=== PATIENT | female | born 1945 | race Caucasian/White ===

== ENCOUNTER 2023-10-07 15:50 | Inpatient (IN) | payer OTHER, SELFPAY ==
[2023-10-07] VITALS (10 sets, daily range): BP systolic 124–193; BP diastolic 48–101; BMI 49.1; BMI 49.0
--- NOTE | 2023-10-07 11:56 | ED.GENMED ---
History of Present Illness
<Betty Cuevas PA-C - Last Filed: 10/17/23 17:27>
General
Chief Complaint: Chest Pain
Source: patient and ambulance crew
Exam Limitations: clinical condition
Time Seen by Provider: 10/07/23 11:39
Nursing documentation reviewed up to this point in time: agreed with
Travel History
Have you had any contact with someone who has COVID-19?: No
Do you have any symptoms of coronavirus? Fever > 100 degrees, chills, cough, shortness of breath, sore throat, loss of taste or smell, muscle aches, or headache?: No
History of Present Illness
History of Present Illness:
The patient is a 77 year old female with history DM, CHF presenting via EMS for evaluation of intermittent chest pain for the past two days. Patient is unable to pinpoint any exacerbating or alleviating factors associated with this chest pain. She
does not believe that there is an exertional component to this chest pain.Per patients - the chest pain was worse today.
She denies any associated dyspnea, nausea, vomiting, diaphoresis. She denies any urinary symptoms.
She is a vague historian
Past History
<Betty Cuevas PA-C - Last Filed: 10/17/23 17:27>
Past History
ED Past Medical History: HTN and NIDDM
Phy Exam
<Betty Cuevas PA-C - Last Filed: 10/17/23 17:27>
Physical Exam
Physical Exam:
General: In no acute distress and non-toxic
Vitals: Hypertensive, otherwise VSS
HEENT: Atraumatic, normocephalic; pupils equal round and reactive to light bilaterally, protecting airway
Neck: appears supple, no JVD
CV: RRR, heart sounds normal, No evidence of cyanosis
Resp: Lungs clear bilaterally with no rales, rhonchi, or wheezing, No accessory muscle use
Abd: Obese but soft, nontender, non-distended
Extremities: Bilateral lower extremity edema, some redness and tenderness to right lower extremity
Neuro: alert and oriented x 3; no gross deficits
Psych: Agitated
Skin: Intact
Scores
<Betty Cuevas PA-C - Last Filed: 10/17/23 17:27>
Heart Score for Chest Pain Patients
STEMI patient?: No
History: Slightly or Non-Suspicious
ECG: Normal
Age: >/= 65 years
Risk Factors: >/= 3 Risk Factors or History of CAD
Troponin: >1 - <3 x Normal Limit
Heart Score for Chest Pain Patients: 5
Heart Score Risk: 20.3% MACE over next 6 weeks
Course
<Betty Cuevas PA-C - Last Filed: 10/17/23 17:27>
Orders/Labs/Results
Orders:
Orders
10/07/23 11:47
Electrocardiogram (*1) Urgent
Reason for Study: Chest Pain
EKG- Treatment ONCE
10/07/23 11:51
Basic Metabolic Panel Urgent
Complete Blood Count/With Diff Urgent
Free T4 Urgent
NT-proBNP Urgent
TSH Reflex To Free T4 Urgent
Comment: PROBNP & TSH REFLEX ADDED ON BY FLOOR 3:45PM 10-07-23
Troponin I Urgent
10/07/23 12:00
CR Chest - 2 Views Urgent
Comment:
Reason For Exam: chest pain
US Legs, Right [US Periph Venous LOWER Ext RT] Urgent
Comment:
Reason For Exam: redness, swelling
10/07/23 12:01
Case Management Consult ONCE
Case Management Consult: Discharge Planning
Requested By:: NURSING
Comment: PT. caked in stool, red buttocks, morbidily obese, wounds on RLE. Does not know hx, meds, etc..
10/07/23 13:36
Troponin I Urgent
10/07/23 13:38
Potassium Urgent
10/07/23 14:50
Electrocardiogram (*1) Urgent
Reason for Study: Chest Pain
EKG- Treatment ONCE
10/07/23 Dinner
1800 calorie (15 carb) Diabetic
At Your Request: Limited Participation
10/07/23 15:32
Admit/Transfer Patient As Directed
Co-Sign Provider:
Level of Care: Inpatient admission
Assign to:: Telemetry
Physician / Group: katy Betancourt
Transfer to: Telemetry
Diagnosis: Chest pain
Reason for Telemetry: Chest Pain syndromes
Date to Stop Telemetry: 10/09/23
Time to Stop Telemetry: 11:00
Reason for Hospitalization: Above
Expected length of stay greater than two midnights?: Yes
ELOS- Estimated Length of Stay in days: 2
I certify the patient meets the requirements for IP care: Yes
10/07/23 15:36
Code Status As Directed
Resuscitation Status: Full Code
10/07/23 15:45
Add On- LAB Routine
Tests Added?: proBNP, TSH with reflex to free T4
10/07/23 17:14
Atorvastatin [Lipitor] 80 mg PO DAILY
Dextrose 50%-Water [Dextrose 50% Syringe] 12.5 grams IV [id number] PRN
Escitalopram Oxalate [Lexapro] 10 mg PO DAILY
Glucagon [GlucaGen] 1 mg IM PRN PRN
Insulin Aspart Corrective Low [Novolog Flexpen-Low Resistance] See Protocol SC AC
Insulin Aspart/Asp Protamine [Novolog Mix 70/30 Flexpen] 50 units SC BID@0800,1700
VANCOMYCIN Pharmacy to Dose [VANCOCIN Pharmacy to Dose] 1 each Pharmacy To Prepare [Call Pharmacy To Prepare] 0 ml IV PER PROTOCOL
10/07/23 17:14
CARDIOLOGY CONSULT Routine
Consulting Provider: Vern Jung
Was physician already notified: Yes
Bedside Glucose Monitoring As Directed
Frequency: AC&HS
Comment: Change to q6h if pt on TPN, tube feeding or not eating
Wound Care As Directed
Location of Wound: Anterior Right Lower Extremity
Treatment of Wound: Wound care consult
DX Deep Vein Thrombosis Video Routine
10/07/23 17:38
Potassium Urgent
Troponin I Q8H
10/07/23 18:00
Enoxaparin Sodium [Lovenox] 40 mg SC QPM
10/07/23 20:00
Carvedilol [Coreg] 12.5 mg PO BID
10/08/23 01:07
Troponin I Q8H
10/08/23 06:26
BMP [Basic Metabolic Panel] IN AM
CBC/With Diff [Complete Blood Count/With Diff] IN AM
Glycohemoglobin (HgbA1c) IN AM
10/08/23 07:00
Levothyroxine [Synthroid] 150 mcg PO DAILY AT 0700
10/08/23 08:00
Bumetanide [Bumex] 1 mg PO DAILY
Pantoprazole [Protonix] 40 mg PO DAILY
10/09/23 11:00
DC Protocol for Telemetry ONCE
Abnormal Lab Results
10/07/23 10/07/23
11:51 13:36
MCHC 32.3 L g/dL
(33.0-37.0)
RDW 15.6 H %
(11.5-14.5)
MPV 11.3 H fL
(7.4-10.4)
BUN 26 H mg/dl
(7-17)
Creatinine 1.8 H mg/dL
(0.6-1.0)
Glucose 123 H mg/dl
(70-99)
Troponin I 0.041 H* ng/ml 0.036 H* ng/ml
TSH (Reflex) 8.66 H uIU/ml
(0.47-4.68)
10/07/23 11:51
10/07/23 13:38
Vital Signs
Initial and Last Documented VS:
Initial Vital Signs
Temp Pulse Resp BP Pulse Ox
98.5 F 70 18 143/50 96
10/07/23 11:35 10/07/23 11:35 10/07/23 11:35 10/07/23 11:35 10/07/23 11:35
Last Documented Vital Signs
Temp Pulse Resp BP Pulse Ox
98.7 F 86 18 160/70 95
10/09/23 10:59 10/09/23 10:59 10/09/23 10:59 10/09/23 12:05 10/09/23 10:59
<Sreedhar Lantigua MD - Last Filed: 10/07/23 13:23>
Orders/Labs/Results
Orders:
Orders
10/07/23 11:47
Electrocardiogram (*1) Urgent
Reason for Study: Chest Pain
EKG- Treatment ONCE
10/07/23 11:51
Basic Metabolic Panel Urgent
Complete Blood Count/With Diff Urgent
Free T4 Urgent
NT-proBNP Urgent
TSH Reflex To Free T4 Urgent
Comment: PROBNP & TSH REFLEX ADDED ON BY FLOOR 3:45PM 10-07-23
Troponin I Urgent
10/07/23 12:00
CR Chest - 2 Views Urgent
Comment:
Reason For Exam: chest pain
US Legs, Right [US Periph Venous LOWER Ext RT] Urgent
Comment:
Reason For Exam: redness, swelling
10/07/23 12:01
Case Management Consult ONCE
Case Management Consult: Discharge Planning
Requested By:: NURSING
Comment: PT. caked in stool, red buttocks, morbidily obese, wounds on RLE. Does not know hx, meds, etc..
10/07/23 13:36
Troponin I Urgent
10/07/23 13:38
Potassium Urgent
10/07/23 14:50
Electrocardiogram (*1) Urgent
Reason for Study: Chest Pain
EKG- Treatment ONCE
10/07/23 Dinner
1800 calorie (15 carb) Diabetic
At Your Request: Limited Participation
10/07/23 15:32
Admit/Transfer Patient As Directed
Co-Sign Provider:
Level of Care: Inpatient admission
Assign to:: Telemetry
Physician / Group: katy Betancourt
Transfer to: Telemetry
Diagnosis: Chest pain
Reason for Telemetry: Chest Pain syndromes
Date to Stop Telemetry: 10/09/23
Time to Stop Telemetry: 11:00
Reason for Hospitalization: Above
Expected length of stay greater than two midnights?: Yes
ELOS- Estimated Length of Stay in days: 2
I certify the patient meets the requirements for IP care: Yes
10/07/23 15:36
Code Status As Directed
Resuscitation Status: Full Code
10/07/23 15:45
Add On- LAB Routine
Tests Added?: proBNP, TSH with reflex to free T4
10/07/23 17:14
Atorvastatin [Lipitor] 80 mg PO DAILY
Dextrose 50%-Water [Dextrose 50% Syringe] 12.5 grams IV [id number] PRN
Escitalopram Oxalate [Lexapro] 10 mg PO DAILY
Glucagon [GlucaGen] 1 mg IM PRN PRN
Insulin Aspart Corrective Low [Novolog Flexpen-Low Resistance] See Protocol SC AC
Insulin Aspart/Asp Protamine [Novolog Mix 70/30 Flexpen] 50 units SC BID@0800,1700
VANCOMYCIN Pharmacy to Dose [VANCOCIN Pharmacy to Dose] 1 each Pharmacy To Prepare [Call Pharmacy To Prepare] 0 ml IV PER PROTOCOL
10/07/23 17:14
CARDIOLOGY CONSULT Routine
Consulting Provider: Vern Jung
Was physician already notified: Yes
Bedside Glucose Monitoring As Directed
Frequency: AC&HS
Comment: Change to q6h if pt on TPN, tube feeding or not eating
Wound Care As Directed
Location of Wound: Anterior Right Lower Extremity
Treatment of Wound: Wound care consult
DX Deep Vein Thrombosis Video Routine
10/07/23 17:38
Potassium Urgent
Troponin I Q8H
10/07/23 18:00
Enoxaparin Sodium [Lovenox] 40 mg SC QPM
10/07/23 20:00
Carvedilol [Coreg] 12.5 mg PO BID
10/08/23 01:07
Troponin I Q8H
10/08/23 06:26
BMP [Basic Metabolic Panel] IN AM
CBC/With Diff [Complete Blood Count/With Diff] IN AM
Glycohemoglobin (HgbA1c) IN AM
10/08/23 07:00
Levothyroxine [Synthroid] 150 mcg PO DAILY AT 0700
10/08/23 08:00
Bumetanide [Bumex] 1 mg PO DAILY
Pantoprazole [Protonix] 40 mg PO DAILY
10/09/23 11:00
DC Protocol for Telemetry ONCE
Abnormal Lab Results
10/07/23 10/07/23
11:51 13:36
MCHC 32.3 L g/dL
(33.0-37.0)
RDW 15.6 H %
(11.5-14.5)
MPV 11.3 H fL
(7.4-10.4)
BUN 26 H mg/dl
(7-17)
Creatinine 1.8 H mg/dL
(0.6-1.0)
Glucose 123 H mg/dl
(70-99)
Troponin I 0.041 H* ng/ml 0.036 H* ng/ml
TSH (Reflex) 8.66 H uIU/ml
(0.47-4.68)
10/07/23 11:51
10/07/23 13:38
Vital Signs
Initial and Last Documented VS:
Initial Vital Signs
Temp Pulse Resp BP Pulse Ox
98.5 F 70 18 143/50 96
10/07/23 11:35 10/07/23 11:35 10/07/23 11:35 10/07/23 11:35 10/07/23 11:35
Last Documented Vital Signs
Temp Pulse Resp BP Pulse Ox
98.7 F 86 18 160/70 95
10/09/23 10:59 10/09/23 10:59 10/09/23 10:59 10/09/23 12:05 10/09/23 10:59
<Betty Cuevas PA-C - Last Filed: 10/17/23 17:27>
MDM/Problems Addressed
Differential Diagnosis Includes:
ACS, PE, pneumonia, pneumothorax, costochondritis, anxiety, GERD
MDM/Problems Addressed:
Patient is a 77 year old female with hx CHF, hypertension, hyperlipidemia, diabetes presenting vis ems for evaluaiton of vague chest pain over the past two days. Patient is poor historian but does not believe symptoms or exertional or pleuritic in
nature. No associated shortness of breath or GI symptoms. She is hypertensive, but otherwise stable vital signs. Physical exam as documented above. EKS shows no STEMI. Will check basic labs, troponin, ProBNP. Given degree of swelling and erythema of
right lower leg will check US of right lower leg
CBC without any clinically significant abnormalities. CMP with elevation in Cr and BUN appears to be baseline for patient. Initial troponin elevated to 0.041. Will repeat in 3 hours and trend. US negative for findings consistent with DVT in RLE.
Repeat troponin slightly decreased from prior but remains elevated at 0.36. Discussed with cardiology - recommend admission with hospitalist service for further management. Cardiology will consult on patient. Discussed with and admitted patient to
hospitalist service.
Chronic conditions affecting care:
CHF, HTN, HLD, GERD, DM, Obesity
Acute Exacerbation and/or Progression of Chronic Illness:
Acutely hypertenisve
<Betty Cuevas PA-C - Last Filed: 10/17/23 17:27>
*Radiology
Radiology exam reviewed: preliminary read by ED provider and radiology read reviewed
*Pulse Oximetry
Patient hypoxic: no
*EKG
Interpreted by ED Provider?: Yes
EKG Intrepretation Date: 10/07/23
Interpretation: abnormal
Comparison EKG: changes noted
Heart Rate: 67
Rate: normal
Rhythm: sinus
[place]: left axis deviation
Interval: normal interval
QRS Pattern: normal QRS
Ischemia: non-specific ST changes
*Critical Care Note
Total Time (30-74mins, 75-104mins- exclusive of procedures): Not Applicable
Data Reviewed
Source: patient and spouse
<eBtty Cuevas PA-C - Last Filed: 10/17/23 17:27>
Patient Management
Discussion with other providers: Hospitalist and Mapping Specialist (cardiology)
ED Attending Note
<Betty Cuevas PA-C - Last Filed: 10/17/23 17:27>
-
Portions of this chart may have been created with voice recognition software.� Occasional wrong word or��sound alike� substitutions may have occurred due to the inherent limitations of voice recognition software.
<Sreedhar Lantigua MD - Last Filed: 10/07/23 13:23>
ED Attending Note
Patient seen and examined by attending physician: Yes
ED Attending Note:
HPI: 77-year-old female with history of diabetes, obesity, hypothyroidism, CHF presents to the emergency room for evaluation of chest pain. Patient is a very vague historian. She says she has been having chest pain but cannot really tell me about
triggers or timing of her symptoms although she seems to be rather confident that her symptoms are not exertional. Her is at bedside says that she has been complaining of chest pain off and on for the past 2 days and was complaining of more
intense symptoms today. She denies any dyspnea. Denies any GI symptoms.
ROS: Positive for chest pain; negative for shortness of breath, nausea, vomiting, abdominal pain
Physical exam:
General: Awake, alert, oriented x3; no acute distress, calm and cooperative for me although she was apparently threatening and cursing at staff on arrival
Head: Normocephalic, atraumatic
Eyes: Conjunctiva normal, sclera anicteric
Throat: Airway intact, handling secretions
Neck: Trachea midline, supple without meningismus
Lungs: Clear to auscultation bilaterally, no wheezing, rales, rhonchi
Heart: Regular rate and rhythm, no murmurs, gallops, or rubs
Abd: Obese but soft, non distended, nontender
Neuro: No gross deficit
Skin: no rash
Extremities: Bilateral lower extremity; she has some erythema to the right lower leg and tenderness in this area
Differential diagnosis: ACS, PE, pneumonia, pneumothorax, costochondritis, anxiety, GERD
Medical decision makin-year-old female presents for evaluation of intermittent vague chest pain over the past 2 days. Vital signs normal. Exam as above. EKG shows no STEMI. Labs sent off including a CBC and a CMP�significant for creatinine
of 1.8 which is baseline. Her troponin is elevated at 0.041�will need to trend out. Given her vague intermittent symptoms with positive troponin PA discussed case with cardiology who recommended admission to the hospital service will trend
troponins and consult on patient. PA discussed with hospitalist for admission.
Chronic conditions affecting care: Obesity, diabetes, CHF
Acute exacerbation or progression of chronic illness: N/A
History source: Patient,
Data reviewed: N/A
Medications/testing considered: N/A
Social determinants of health: N/A
Discussion with other providers: Cardiology, hospitalist
Discharge Plan
Departure
Patient Disposition: Admit
Date of Disposition: 10/07/23
Time of Disposition: 13:16
Presentation/result/management discussed w/ accepting MD/DO: Hospitalist
Discharge Problem:
Chest pain, Elevated troponin
Interventions
Interventions:
*Risk Screen - Suicide Last Done: 10/07/23 17:56
*General Assessment Last Done: 10/07/23 11:35
*Neglect/Abuse Screening Last Done: 10/07/23 11:35
ED- Fall Risk Assessment Last Done: 10/07/23 11:35
*ED COVID-19 Vaccine History Last Done: 10/07/23 17:56
*Nursing Disposition Last Done: 10/07/23 16:37
ED- Cardiac Assessment Last Done: 10/07/23 11:35
Discharge Date and Time
Discharge Date/Time: 10/07/23 17:09
[2023-10-07 12:01] LABS: % Basophils 0.4 % (0-2); % Eosinophils 3.5 % (0-6); % Immature Granulocytes 0.4 % (0-0.5); % Lymphocytes 21.2 % (20.5-51.1); % Monocytes 8.1 % (1.7-9.3); % Neutrophils 66.4 % (42.2-75.2); Absolute Eosinophils 0.3 10^3/uL (0-0.7); Absolute Lymphocytes 1.6 10^3/uL (1.2-3.4); Absolute Monocytes 0.6 10^3/uL (0.1-0.6); Hematocrit 41.2 % (37.0-47.0); Hemoglobin 13.3 g/dL (12.0-16.0); Mean Corp Hgb Conc. 32.3 g/dL (33.0-37.0); Mean Corpuscular Hgb 28.1 pg (27.0-31.0); Mean Corpuscular Volume 86.9 fL (81.0-99.0); Mean Platelet Volume 11.3 fL (7.4-10.4); Nucleated Red Blood Cells % 0 %; Platelet Count 199 10^3/uL (130-400); Red Blood Cell Count 4.74 10^6/uL (4.20-5.40); Red Cell Dist. Width 15.6 % (11.5-14.5); White Blood Cell Count 7.5 10^3/uL (4.8-10.8)
[2023-10-07 12:26] LABS: Blood Urea Nitrogen 26 mg/dl (7-17); Calcium 8.7 mg/dl (8.4-10.2); Carbon Dioxide 27 mmol/L (22-30); Chloride 104 mmol/L (98-107); Estimated Creatinine Clearance 39 ml/min; Glucose 123 mg/dl (70-99); Sodium 137 mmol/L (135-145); eGFR 29.02
[2023-10-07 12:40] LABS: Troponin I 0.041 ng/ml
[2023-10-07 13:53] LABS: Potassium 4.1 mmol/L (3.5-5.1)
[2023-10-07 14:10] LABS: Troponin I 0.036 ng/ml
--- NOTE | 2023-10-07 14:27 | CM ---
Patient seen at bedside with patient present. Patient stated that they lived in a home with 3 stairs to go to lower level. Patient stated that patient had PCP of Dr. Hunter but now had Dr. Silva. Patient uses the [facility] [address] in [place] and has had [facility] in the past but is not current with them. Patient has a concentrator that she uses at night per and that they own. Patient has a walker, wheelchair and Lift chair in addition to the home
O2. Patient indicated that patient is stubborn about care at times but was cleaned up prior to transfer to ambulance this am. Patient confirmed that she is stubborn and does not like to do things other than how she wants. Consult regarding
care and cleanliness, both patient and brushed off any concerns. Patient may benefit from PT/OT assessment and home VN supports. Patient admitted that she can walk but at times refuses to do so. Patient indicated that she did not think she
would ever agree to go to a SNF, agreed. CM will continue to follow for discharge planning needs.
Plan; home with VN; [facility] vs SNF
--- NOTE | 2023-10-07 15:43 | CON.CAR ---
Addendum entered and electronically signed by Vern Jung DO 10/07/23 18:22:
I saw and examined the patient.
The Decorating Consultant's note was reviewed and I agree with the note.
Comment:
Plan:
presents for evaluation of intermittent chest pain over the last several days.� Different than prior presentation resulting in stents several years ago.
Continue medical therapy of likely non-PA troponin.
Check echo for evaluation of LV function in the setting of lower extremity edema/lymphedema/chronic renal insufficiency
Consider outpatient ischemic evaluation through her primary rest room attendant Dr. Richard
Check proBNP. Continue oral Bumex. Monitor creatinine.
EKG without acute changes.
Obtain records from outpatient rest room attendant
Continue wound care and treatment of lower extremity cellulitis.
Discussed with son at bedside.
Original Note:
Consultation
Consultation Request
Date/Time Consultation Performed: 10/07/23
Requesting Provider: Betty Cuevas
Performing Provider: Joanne Owen PA-C for Dr. Jung
Reason for Consultation: CP, elevated trop
Medical History
-
Chief Complaint: CP
History of Present Illness:
Patient is a 77 yo F with PMH of CAD s/p stents at OSH, CHF, HTN, HLD, DM, hypothyroidism, morbid obesity, CKD who presented to with complaints of chest pressure/discomfort. Reports centrally located without radiation. Reports some mild nausea
with a bitter taste in her mouth. States she was sitting when it started, no correlation with exertion or eating. Has been intermittent since initially started 2 days ago. In the setting of her prior stents, she had complained of shortness of
breath. She has chronic knee disease with creatinine previously as high as the twos, more recently decreased into the mid ones per her son. She had been switched from Lasix as an outpatient to bumex due to her kidney function. She reports she
also recently has had open wounds and oozing of her right lower extremity for several weeks duration. Cardiology consulted as troponin elevated at 0.03, 0.04. Without chest pain presently. EKG sinus rhythm with nonspecific ST and T wave
abnormality.
PMH:
CAD status post prior stents at outside hospital
Chronic venous insufficiency/lymphedema
CKD
hypertension
Hyperlipidemia
diabetes
hypothyroidism
Morbid obesity
Past Medical History
Past Medical History: Other (in HPI)
Social History
Employment: Retired
Family History
Family History: CAD (in father in 60s)
Allergies / Home Medications
Allergy/AdvReac Type Severity Reaction Status Date / Time
No Known Allergies Allergy Verified 02/04/23 01:31
Medication Instructions Recorded Confirmed Type
atorvastatin 80 mg tablet 80 mg PO DAILY High Cholesterol 02/04/23 10/07/23 History
escitalopram oxalate 10 mg tablet 10 mg PO DAILY Mental 02/04/23 10/07/23 History
Health/Anxiety
levothyroxine 150 mcg tablet 150 mcg PO DAILY Thyroid 02/04/23 10/07/23 History
omeprazole 20 mg tablet,delayed 20 mg PO DAILY Gastrointestinal 02/04/23 10/07/23 History
release Issue
carvedilol 12.5 mg tablet 12.5 mg PO BID 02/05/23 10/07/23 History
bumetanide 1 mg tablet 1 mg PO DAILY 10/07/23 10/07/23 History
clindamycin HCl 300 mg capsule 300 mg PO Q6H 10/07/23 10/07/23 History
insulin aspar prt-insulin aspart 1 sliding scale dose SC AC 10/07/23 10/07/23 History
100 unit/mL (70-30) subcutaneous
soln (Novolog Mix 70-30 U-100
Insuln)
Review of Systems
-
History Source: Patient and Family
All other systems: Negative unless noted
Physical Exam
Vital Signs
Temp Pulse Resp BP Pulse Ox
98.5 F 67 17 134/65 91
10/07/23 11:35 10/07/23 14:30 02/22/24 12:49 10/07/23 14:00 10/07/23 14:30
Lab Results
10/07/23 11:51
10/07/23 13:38
Troponin I 0.036 ng/ml H* 10/07/23 13:36
Physical Exam
General: No Apparent Distress, Comfortable and Other (obese)
HEENT: Normocephalic, Anicteric and Moist Mucous Membranes
Respiratory: Clear and Non Labored Respirations
Cardiac: S1/S2 and Regular Rhythm
GI: Soft, Non Tender, Non Distended and Normal Bowel Sounds
Musculoskeletal: No Clubbing, No Cyanosis and Edema (3+ RLE edema with blistering, open wounds with surrounding erythema, 1+ edema of LLE)
Skin: Warm and Dry
Neuro: AO x 3
Impression / Plan
-
Primary Defensive Line Coach: previously seen by Dr. Grande
Assessment:
Presentation with CP
RLE edema/wounds
Elevated troponin, suspected nonMI trop elevation
CAD status post prior stents at outside hospital
Chronic HFpEF
Chronic venous insufficiency/lymphedema
CKD
hypertension
Hyperlipidemia
diabetes
hypothyroidism
Morbid obesity
Plan:
-Patient presents for evaluation of intermittent chest pain over the last several days. Different than prior presentation resulting in stents several years ago.
-Troponins very mildly abnormal 0.03, 0.04. Patient also with chronic kidney disease
-Patient without chest pain currently.
-EKG sinus rhythm without acute ischemic changes noted, stable compared to prior EKGs
-Check echo
-Obtain records from outpatient rest room attendant
-Check proBNP in setting of significant lower extremity edema. She does take Bumex as an outpatient, continue p.o. for now, however may require IV diuresis
-May consider for ischemic eval, inpatient versus outpatient pending on results of additional blood work and testing. She would be at elevated risk for ATN with cath due to her chronic kidney disease. Differential should also include PE, however
with kidney function would avoid CT. right lower extremity ultrasound negative for DVT in ER
-Continue local wound care to right lower extremity. Further treatment per primary service
-Discussed with patient and son at bedside. Discussed with hospitalist
Data Reviewed
-
EKG: Tracing Personally Visualized and interpreted
Ultrasound: Report Reviewed by me
Medical Tests (Nuc Med, Echo etc): Report Reviewed by me
Labs: Labs Reviewed by me
Old Records: Requested and Reviewed
--- NOTE | 2023-10-07 15:48 | HPS.HSE ---
Family Physician
-
Family Physician: Fuentes Ann
Chief Complaint
-
Chest pain
History of Present Illness
Patient is a 77-year-old female with past medical history of poorly controlled diabetes mellitus, hypothyroidism, cellulitis s/p sepsis with lactic acidosis, class III obesity, who presented to ED with C/o of intermittent chest pain that started
2 days ago. She describes the pain as a pressure in the middle of the chest, rated 4/10 at its worst and does not radiate. The pain does not change with movement, stays for about 10 to 12 minutes and goes away on its own without treatment. Patient
stated that she gets the chest pain while sitting and doing nothing and the pain does not change when she moves. She has not examined the makes it better or worse. Patient does not have pain at the moment.
Patient also reports a weeping wound on the anterior aspect of her right leg which has been there since July 2023. She reports some sharp pain in the area of the wound. Patient stated that she was expecting a call from wound care but has not
gotten any wound care treatment. She denies shortness of breath, fever, chills, headaches, and any urinary symptoms.
Medical History
Past Medical History
Past Medical History: Reports HTN, Hypothyroidism and IDDM; Denies CAD or DE
Additional Past Medical History:
Depression, overactive bladder, ASCVD(two-vessel), CKD
Past Surgical History: Reports Other
Additional Past Surgical History:
PTCA with Stent x 2 2 years ago
Tonsillectomy and adenoidectomy
Social History
Tobacco: Former Smoker (Quit about 12 years ago)
Alcohol: Occasional
Drug: None
Personal:
Living: With Family
Family History
Family History: Diabetes and Hypertension
Allergies / Home Medications
Allergies reflects when Allergies were last updated in [facility].
Allergies
Allergy/AdvReac Type Severity Reaction Status Date / Time
No Known Allergies Allergy Verified 02/04/23 01:31
Home Medications
Medication Instructions Recorded
atorvastatin 80 mg tablet 80 mg PO DAILY High Cholesterol 02/04/23
escitalopram oxalate 10 mg tablet 10 mg PO DAILY Mental 02/04/23
Health/Anxiety
levothyroxine 150 mcg tablet 150 mcg PO DAILY Thyroid 02/04/23
omeprazole 20 mg tablet,delayed 20 mg PO DAILY Gastrointestinal 02/04/23
release Issue
carvedilol 12.5 mg tablet 12.5 mg PO BID 02/05/23
bumetanide 1 mg tablet 1 mg PO DAILY 10/07/23
clindamycin HCl 300 mg capsule 300 mg PO Q6H 10/07/23
insulin aspar prt-insulin aspart 1 sliding scale dose SC 10/07/23
100 unit/mL (70-30) subcutaneous
soln (Novolog Mix 70-30 U-100
Insuln)
Home Medications with original date entered in [facility]
Allergy/Medication List:
Home Medications
Medication Instructions Recorded
atorvastatin 80 mg tablet 80 mg PO DAILY High Cholesterol 02/04/23
escitalopram oxalate 10 mg tablet 10 mg PO DAILY Mental 02/04/23
Health/Anxiety
levothyroxine 150 mcg tablet 150 mcg PO DAILY Thyroid 02/04/23
omeprazole 20 mg tablet,delayed 20 mg PO DAILY Gastrointestinal 02/04/23
release Issue
carvedilol 12.5 mg tablet 12.5 mg PO BID 02/05/23
bumetanide 1 mg tablet 1 mg PO DAILY 10/07/23
clindamycin HCl 300 mg capsule 300 mg PO Q6H 10/07/23
insulin aspar prt-insulin aspart 1 sliding scale dose SC 10/07/23
100 unit/mL (70-30) subcutaneous
soln (Novolog Mix 70-30 U-100
Insuln)
Review of Systems
-
History Source: Patient and Family
A 12 point ROS was completed and negative except as noted: Yes
Constitutional: Denies Fever or Chills
EENT: Reports No Symptoms
Respiratory: Reports No Symptoms; Denies Cough or Trouble Breathing
Cardiac: Reports Chest Pain (Intermittent)
Abdomen/GI: Reports No Symptoms
: Reports No Symptoms
Musculoskeletal: Reports No Symptoms
Skin: Reports Other (Possible cellulitis and anterior right lower extremity)
Neurological: Reports No Symptoms
Endocrine: Reports No Symptoms
Hematologic/Lymphatic: Reports No Symptoms
Psych: Reports Calm
Physical Exam
Vital Signs
Vital Signs
Temp Pulse Resp BP Pulse Ox
98.5 F 67 17 134/65 91
10/07/23 11:35 10/07/23 14:30 10/07/23 12:49 10/07/23 14:00 10/07/23 14:30
Home Medications
Medication Instructions Recorded
atorvastatin 80 mg tablet 80 mg PO DAILY High Cholesterol 02/04/23
escitalopram oxalate 10 mg tablet 10 mg PO DAILY Mental 02/04/23
Health/Anxiety
levothyroxine 150 mcg tablet 150 mcg PO DAILY Thyroid 02/04/23
omeprazole 20 mg tablet,delayed 20 mg PO DAILY Gastrointestinal 02/04/23
release Issue
carvedilol 12.5 mg tablet 12.5 mg PO BID 02/05/23
bumetanide 1 mg tablet 1 mg PO DAILY 10/07/23
clindamycin HCl 300 mg capsule 300 mg PO Q6H 10/07/23
insulin aspar prt-insulin aspart 1 sliding scale dose SC AC 10/07/23
100 unit/mL (70-30) subcutaneous
soln (Novolog Mix 70-30 U-100
Insuln)
Allergies
Allergy/AdvReac Type Severity Reaction Status Date / Time
No Known Allergies Allergy Verified 02/04/23 01:31
Physical Exam
General: No Apparent Distress, Comfortable and Conversant; No Respiratory Distress
HEENT: NormoCephalic, Moist mucous membranes and Atraumatic
Respiratory: Clear and Non Labored Respirations
Cardiac: S1/S2 and Regular Rhythm; No Murmur, Rub or Gallop
GI: Soft and Non Tender
Rectal: Deferred by Provider
Genito-urinary: Deferred by me
Musculoskeletal: No Clubbing, No Cyanosis, Edema, Left Lower Extremity and Edema, Right Lower Extremity
Skin: Warm, Ulcers (With possible cellulitis in the right lower extremity) and Other (Lymphedema)
Neuro: Awake, Alert, Oriented and AO x 3
Psych: Calm and Intact Judgment/Insight
Laboratory Results
-
10/07/23 11:51
10/07/23 13:38
Laboratory Results
Total Bilirubin Cancelled 10/07/23 11:51
AST Cancelled 10/07/23 11:51
ALT Cancelled 10/07/23 11:51
Alkaline Phosphatase Cancelled 10/07/23 11:51
Troponin I 0.036 ng/ml H* 10/07/23 13:36
Data Reviewed
-
Diagnostic Radiology: Image Personally Visualized and interpreted, Report Reviewed by me and Discussed with Physician
Ultrasound: Image Personally Visualized and interpreted, Report Reviewed by me and Discussed with Physician
Lab Data: Labs Reviewed by me and Discussed with Physician
Impression/Plan
-
IMPRESSION:
Presentation with chest pain
Right lower extremity cellulitis in the setting of lymphedema.
Conditions Prior to Admission
Most recent hospitalization with sepsis and streptococcal bacteremia.
CAD with prior stenting in outside hospital.
Chronic CHF preserved EF.
CKD stage IIIa�B.
Essential hypertension
Dyslipidemia
IDDM
Hypothyroidism
Morbid obesity BMI 49
Chronic lymphedema/venous insufficiency
PLAN:
Presentation with atypical chest pain
-Described as mid chest pressure at rest, worsening with position or exertion.
-ECG with normal sinus rhythm and nonspecific ST abnormalities.
-Chest x-ray with no focal abnormalities.
-Right lower extremity ultrasound with no DVT.
-Mild elevation of troponin I and non-DE range.
-Hemodynamically stable, in no acute respiratory distress.
-Differential diagnosis includes possible musculoskeletal in origin given her BMI/morbid obesity, less likely acute coronary syndrome, less likely tension pneumothorax, less likely esophageal perforation, less likely acute PE given unremarkable
chest x-ray and stable respiratory status.
-Would like to rule out PE but patient not a candidate of CT angiogram given her CKD.
-Serial troponin.
-Echocardiogram pending.
-Continue statin.
-Continue Coreg.
-Cardiology consult.
-Patient follows with Dr. Richard outpatient; obtain prior records from electroplating sales representative
Right lower extremity cellulitis in the setting of lymphedema
-Recent admission with sepsis and streptococcal bacteremia of unknown source.
-Right lower extremity Doppler negative for DVT.
-Normal white count, patient afebrile.
-Start IV vancomycin.
-Hold clindamycin.
-Wound consult.
IDDM
Prior history of noncompliance and hemoglobin A1c of 12.
Update hemoglobin A1c.
Continue insulin 70/30 at 50 twice daily
Continue glyburide
Basal bolus protocol
Come hide controlled diet
Heart failure with preserved EF.
-Volume status possibly compensated given stable respiratory status
-Continue preadmission regimen including Coreg, Bumex
Hypothyroidism
Continue levothyroxine
DVT prophylaxis
-Lovenox.
--- NOTE | 2023-10-07 16:12 | W.PN.UPDATE ---
Update Note
Progress Note Update
Patient seen and examined
Discussed with cardiology
Discussed with resident
Impression:
Presentation with chest pain likely atypical
Non-OK troponin elevation
Right lower extremity cellulitis in the settings of lymphedema.
Conditions prior to admission:
Most recent hospitalization with sepsis and streptococcal bacteremia.
CAD with prior stenting in outside hospital.
Chronic CHF preserved EF.
CKD stage IIIa�B.
Essential hypertension
Dyslipidemia
IDDM
Hypothyroidism
Morbid obesity BMI 49
Chronic lymphedema/venous insufficiency
Plan:
Chest pain
Reports intermittent mid chest pressure-like sensation at rest, not positional, not worsening with exertion.
Hemodynamically stable presentation
Stable respiratory status.
ECG normal sinus rhythm with no ischemia.
Troponin in non-OK range mild elevation likely with CKD and abnormal GFR.
Differential diagnosis less likely acute coronary syndrome, less likely thromboembolic disease given stable respiratory status, possibly musculoskeletal.
Echocardiogram.
Serial troponin.
Cardiology consultation
Start aspirin.
Continue Coreg
Continue statin
CHF preserved EF.
Volume status possibly compensated given stable respiratory status
Continue preadmission regimen including Coreg, Bumex
Right lower extremity cellulitis
Not septic.
Noted recent admission with sepsis and streptococcal bacteremia at bedtime unclear source, possibly above.
Right lower extremity Doppler negative for DVT
WBC within normal limits
On clindamycin prior to admission
Hold clindamycin
Start IV vancomycin
Wound consult.
IDDM
Prior history of noncompliance and hemoglobin A1c of 12.
Update hemoglobin A1c.
Continue insulin 70/30 at 50 twice daily
Continue glyburide
Basal bolus protocol
Come hide controlled diet
Hypothyroidism
Continue levothyroxine
[2023-10-07 17:25] LABS: NT-proBNP 2690 pg/ml
[2023-10-07 17:42] LABS: Glucose - Point of Care 119 mg/dl (70-99)
--- NOTE | 2023-10-07 17:42 | PHA.VAN.IN ---
Assessment
- Assessment
Renal Function: Appears elevated from baseline (02/03/23 BASELINE SCR: 1.4)
Concomitant Antimicrobials: NONE
- Previous Dosing Experience
Previous Regimen: NONE
Plan
- Plan
Initial / Loading Dose: 1500MG
Maintenance Regimen: DOSING BY RANDOM LEVELS
Monitoring: RANDOM VANCOMYCIN LEVEL 10/08/23 AM
Pharmacokinetics Vancomycin I
- -
Patient Age: 77
Patient Sex: Female
Vancomycin Day #: 1
Indication: Skin And Soft Tissue (LEG CELLULITIS)
Requesting Provider: BOONE
Height / Weight:
Height 5 ft 6 in
Actual Weight 137.552 kg
Pertinent Past Medical History: RECENT HOSP SEPSIS/BACTEREMIA; OUTPT CLINDAMYCIN
- Vital Signs / Lab Results
Temp Pulse Resp BP Pulse Ox
98.5 F 76 17 161/52 95
10/07/23 11:35 10/07/23 17:00 10/07/23 12:49 10/07/23 17:00 10/07/23 17:00
Lab Results - Hematology
10/07/23
11:51
WBC 7.5
Lab Results - Chemistry
10/07/23
11:51
BUN 26 H
Creatinine 1.8 H
Estimated Creat Clear 39
Albumin Cancelled
[2023-10-07 17:48] LABS: TSH Reflex To Free T4 8.66 uIU/ml (0.47-4.68)
[2023-10-07 18:09] LABS: Troponin I 0.038 ng/ml
--- NOTE | 2023-10-07 18:30 | PTCARENOTE ---
Received pt from ER, Pt awake, alert and oriented x3. Anxious at times. Pt has no c/o pain at rest. Pain in right leg with ambulation. No further c/o chest pain. Pt has multiple open blisters vs venous ulcers with scabbed areas, Per having a
lot of drainage at home, currently not draining. Significant swelling in both legs said they use compression when wounds are not present. Area cleansed thoroughly with saline and dressing applied wound care consult in place. Pt VSS 92% on
RA. Pt oriented to room, call lipscomb within reach, Plan of care ongoing.
[2023-10-07 18:35] LABS: Potassium 3.9 mmol/L (3.5-5.1)
[2023-10-07 18:38] LABS: Glucose - Point of Care 147 mg/dl (70-99)
[2023-10-07] MEDS: NOVOLOG FLEXPEN-LOW RESISTANCE SC (18:39)
[2023-10-07 18:41] LABS: Free T4 1.86 ng/dl (0.78-2.19)
[2023-10-07] MEDS: NOVOLOG MIX 70/30 FLEXPEN 50 UNITS SC (18:41)
[2023-10-07] MEDS: VANCOCIN 300 ML IV (18:41)
[2023-10-07] MEDS: VANCOCIN 300 MG IV (18:41)
[2023-10-07] MEDS: LOVENOX 40 MG SC (18:43)
[2023-10-07] MEDS: LIPITOR 80 MG PO (18:43)
--- NOTE | 2023-10-07 18:45 | PTCARENOTE ---
Pts blood sugar 147 prior to dinner Pt due for 50 units of 70/30 Insulin. Pts said that at home he would give full dose of Insulin for current blood sugar. Pt ate 90% of dinner. Pt also given juice and had 2 pieces of candy from .
Encouraged to have snack prior to bed and alert staff if she is feeling any signs of hypoglycemia. Pt verbalized understanding, call lipscomb within reach, plan of care ongoing.
[2023-10-07] MEDS: ASPIRIN ENTERIC COATED 325 MG PO (19:32)
[2023-10-07] MEDS: COREG 12.5 MG PO (20:48)
[2023-10-07 21:16] LABS: Glucose - Point of Care 159 mg/dl (70-99)
[2023-10-07] MEDS: DESENEX/MITRAZOL/ZEASORB 1 APPLIC TOPICAL (22:53)
[2023-10-08] VITALS (7 sets, daily range): BP systolic 112–164; BP diastolic 51–72; BMI 49.2
[2023-10-08 01:55] LABS: Troponin I 0.041 ng/ml
--- NOTE | 2023-10-08 05:40 | PTCARENOTE ---
Patient denies CP this shift. HR irregular. SR with PVC on tele. Breath sounds are cleat but diminished bibasilar. Sat 96% on room air. HS fingerstick glucose 159. Patient sleeping comfortably at this time.
[2023-10-08] MEDS: SYNTHROID 150 MCG PO (06:14)
[2023-10-08 06:36] LABS: % Basophils 0.4 % (0-2); % Eosinophils 4.9 % (0-6); % Immature Granulocytes 0.3 % (0-0.5); % Lymphocytes 20.3 % (20.5-51.1); % Monocytes 8.6 % (1.7-9.3); % Neutrophils 65.5 % (42.2-75.2); Absolute Eosinophils 0.3 10^3/uL (0-0.7); Absolute Lymphocytes 1.4 10^3/uL (1.2-3.4); Absolute Monocytes 0.6 10^3/uL (0.1-0.6); Absolute Neutrophils 4.5 10^3/uL (1.4-6.5); Hematocrit 36.8 % (37.0-47.0); Hemoglobin 11.9 g/dL (12.0-16.0); Mean Corp Hgb Conc. 32.3 g/dL (33.0-37.0); Mean Corpuscular Hgb 28.1 pg (27.0-31.0); Mean Corpuscular Volume 86.8 fL (81.0-99.0); Nucleated Red Blood Cells % 0 %; Platelet Count 180 10^3/uL (130-400); Red Blood Cell Count 4.24 10^6/uL (4.20-5.40); Red Cell Dist. Width 15.7 % (11.5-14.5); White Blood Cell Count 6.9 10^3/uL (4.8-10.8)
[2023-10-08 06:57] LABS: Vancomycin Random 12.8 ug/ml
[2023-10-08 07:15] LABS: Blood Urea Nitrogen 28 mg/dl (7-17); Calcium 8.4 mg/dl (8.4-10.2); Carbon Dioxide 30 mmol/L (22-30); Chloride 102 mmol/L (98-107); Estimated Creatinine Clearance 39 ml/min; Glucose 62 mg/dl (70-99); Potassium 3.8 mmol/L (3.5-5.1); Sodium 138 mmol/L (135-145); eGFR 29.02
--- NOTE | 2023-10-08 08:18 | PHA.VAN.FU ---
Vancomycin Assessment / Plan
- Assessment
Renal Function: Stable
WBC's are: WNL
In the past 24 hrs, patient has been: Afebrile
- Assessment - Therapeutic Drug Monitoring
Random Level: 12.8 - drawn ~11.5H after previous dose of 1500mg
- Dosing Plan
Dosing by Level: Re-dose today (Vanc 1250mg)
- Monitoring Plan
Random Level: 10/09 06
- Follow Up
Pharmacy will continue to follow.
Vancomycin Follow UP
- -
Patient Age: 77
Patient Sex: Female
Vancomycin Day #: 2
Indication: Skin And Soft Tissue
Requesting Provider: Dr. Ashton (resident)
Pertinent Antimicrobial Allergies:
NKDA
Height / Weight:
Height 5 ft 6 in
Actual Weight 138.147 kg
Pertinent Past Medical History: BMI ~49, CKD, DM
- Vital Signs / Lab Results
Temp Pulse Resp BP Pulse Ox
98.1 F 74 16 154/68 95
10/08/23 07:30 10/08/23 07:30 10/08/23 07:30 10/08/23 07:30 10/08/23 07:30
Lab Results - Hematology
10/07/23 10/08/23
11:51 06:26
WBC 7.5 6.9
Lab Results - Chemistry
10/07/23 10/08/23
11:51 06:26
BUN 26 H 28 H
Creatinine 1.8 H 1.8 H
Estimated Creat Clear 39 39
Albumin Cancelled
Therapeutic Drug Monitoring
Random Vancomycin 12.8 ug/ml 10/08/23 06:26
[2023-10-08 08:31] LABS: Glucose - Point of Care 67 mg/dl (70-99)
[2023-10-08 09:17] LABS: Glucose - Point of Care 80 mg/dl (70-99)
[2023-10-08] MEDS: ASPIRIN ENTERIC COATED 325 MG PO (09:17)
[2023-10-08] MEDS: LEXAPRO 10 MG PO (09:17)
[2023-10-08] MEDS: BUMEX 1 MG PO (09:17)
[2023-10-08] MEDS: NOVOLOG FLEXPEN-LOW RESISTANCE SC (09:17)
[2023-10-08] MEDS: COREG 12.5 MG PO ×2 (09:18→20:09)
[2023-10-08] MEDS: DESENEX/MITRAZOL/ZEASORB 1 APPLIC TOPICAL ×2 (09:18→20:10)
[2023-10-08] MEDS: LIPITOR 80 MG PO (09:18)
[2023-10-08] MEDS: PROTONIX 40 MG PO (09:18)
[2023-10-08 09:27] LABS: Glycohemoglobin (HgbA1c) 7.8 % (4.0-5.6)
--- NOTE | 2023-10-08 10:54 | W.PN.CARDCBS ---
Addendum entered and electronically signed by Tyrone Guzman MD 10/08/23 17:02:
She feels better. Still with pain in the right lower extremity
allergies: None
Outpatient medications atorvastatin 80 mg a day, Bumex 1 mg daily, carvedilol 12.5 mg twice daily, clindamycin 300 mg every 6 hours, Lexapro, levothyroxine, 150 mcg daily, omeprazole 20 mg a day
Current medications: Aspirin 325 mg a day, Bumex 1 mg daily, atorvastatin 80 mg a day, carvedilol 12.5 mg twice daily, Lovenox,
PMH/SH/P SH/FH: Reviewed
ROS: Negative except as above
202 70, 112/60, pulse 75, respirate 16, afebrile
Hemoglobin 11.9, BUN/creatinine 28 and 1.8, troponin 0.041, proBNP is 2690
Assessment:
Presentation with CP
RLE edema/wounds
Elevated troponin, peak 0.041, suspected non-ischemic myocardial injury
acute on chronic heart failure reduced EF, proBNP 2690
CAD
status post LAD/D1 w/ bifurcation ANNETTE 09/22/2021 ([facility])Chronic HF mildly reduced EF, 45%
Chronic venous insufficiency/lymphedema
CKD
hypertension
Hyperlipidemia
diabetes
hypothyroidism
Morbid obesity
stroke 04/2017
History of GIB w/ transfusion 09/2021
Echo 10/08/2023: pending
Echo 09/05/2021�EF 45 to 50% with mid and apical anterior septal and apical hypokinesis.� Stage II diastolic dysfunction, mild MR, mild TR with PAP 60 mmHg
Lexiscan nuclear stress test 09/05/2021:�Positive for anteroapical defect suggestive of ischemia
Plan:
Chest pain/Detectable troponin: Consider outpatient ischemic evaluation, however given comorbidities conservative management may be preferable
Heart failure with mildly reduced EF: Await echocardiogram. Suspect she is still significantly volume overloaded, will transition to IV Bumex 1mg bid. She received IV Lasix this afternoon.
Leg wound: Per hospitalist
Morbid obesity: Noted
CKD: Monitor renal function
We will continue to follow.
Original Note:
Today's Communication / Plan
-
Echo today
Give 40 mg IV Lasix x 1 this afternoon and assess response
Replete K+
Impression / Plan
-
Primary [facility] [employer]: previously seen by Dr. Grande
Assessment:
Presentation with CP
RLE edema/wounds
Elevated troponin, peak 0.041, suspected non-ischemic myocardial injury
acute on chronic heart failure reduced EF, proBNP 2690
CAD
status post LAD/D1 w/ bifurcation ANNETTE 09/22/2021 ([facility])
Chronic HF mildly reduced EF, 45%
Chronic venous insufficiency/lymphedema
CKD
hypertension
Hyperlipidemia
diabetes
hypothyroidism
Morbid obesity
stroke 04/2017
History of GIB w/ transfusion 09/2021
Echo 10/08/2023: pending
Echo 09/05/2021 EF 45 to 50% with mid and apical anterior septal and apical hypokinesis. Stage II diastolic dysfunction, mild MR, mild TR with PAP 60 mmHg
Lexiscan nuclear stress test 09/05/2021: Positive for anteroapical defect suggestive of ischemia
Plan:
-Patient presented 10/07/2023 for evaluation of intermittent chest pain over the last several days. Different than prior presentation resulting in stents several years ago.
-Elevated troponin, peak 0.041, suspected non-ischemic myocardial injury due to heart failure and chronic kidney disease
-Patient without chest pain for last EKG sinus rhythm without acute ischemic changes noted, stable compared to prior EKGs
-Echo ordered and pending
-Acute on chronic heart failure, proBNP 2690 with significant lower extremity edema. Will give dose of IV Lasix 40 mg today in addition to oral bumex and assess response
-Replete K+
-Continue Coreg, CKD prevents initiation of KIA-i/ARB, Aldactone. Also has cellulitis and recent admission with sepsis and streptococcal bacteremia unclear source. Would hold on SGLT2 inhibitor at this time.
-Consider outpatient ischemic evaluation through her primary supervisor properties Dr. Richard. She would be at elevated risk for ATN with cath due to her chronic kidney disease. Differential should also include PE, however with kidney function would avoid
CT. right lower extremity ultrasound negative for DVT in ER
-Continue local wound care to right lower extremity. Further treatment per primary service
-Discussed with patient and son at bedside.
-Reviewed outpatient cardiology records and info above reflects findings
Progress Note - [facility] [employer]
Subjective
Date of Service: October 08, 2023
patient seen and examined. Patient lying comfortably in bed. She denies any chest pain since admission. Son at bedside
Objective
Labs:
10/08/23 06:26
10/08/23 06:26
Labs
Hgb 11.9 g/dL (12.0-16.0) L 10/08/23 06:26
Hct 36.8 % (37.0-47.0) L 10/08/23 06:26
Plt Count 180 10^3/uL (130-400) 10/08/23 06:26
Sodium 138 mmol/L (135-145) 10/08/23 06:26
Potassium 3.8 mmol/L (3.5-5.1) 10/08/23 06:26
BUN 28 mg/dl (7-17) H 10/08/23 06:26
Creatinine 1.8 mg/dL (0.6-1.0) H 10/08/23 06:26
Glucose 62 mg/dl (70-99) L 10/08/23 06:26
Troponins
10/07/23 10/07/23 10/07/23
11:51 13:36 17:38
Troponin I 0.041 H* 0.036 H* 0.038 H*
10/08/23
01:07
Troponin I 0.041 H*
Vital Signs and I&O:
Vital Signs
Temp Pulse Resp BP Pulse Ox
98.1 F 74 16 154/68 95
10/08/23 07:30 10/08/23 09:17 10/08/23 07:30 10/08/23 09:17 10/08/23 07:30
Vital Signs
Temp Pulse Resp BP Pulse Ox
98.1 F 74 16 154/68 95
10/08/23 07:30 10/08/23 09:17 10/08/23 07:30 10/08/23 09:17 10/08/23 07:30
Intake & Output
10/06/23 10/07/23 10/08/23 10/09/23
06:59 06:59 06:59 06:59
Intake Total 480 / 480 480 / 480
Balance 480 / 480 480 / 480
Physical Exam
Physical Exam
GEN: No distress, awake, Ox3, lying in bed, morbidly obese
HEENT: supple, anicteric, mmm
LUNGS: CTA, no wheezes/rales
CV: distant heart fallon, Reg, S1/S2, no murmur, rubs or gallops
ABD: soft, BS+, NT/ND
EXT: +2 LE edema,
NEURO: Gross non-focal
SKIN:blistering, open wounds with surrounding erythema of RLE otherwise no rash, warm, dry
[2023-10-08 11:17] LABS: Glucose - Point of Care 165 mg/dl (70-99)
[2023-10-08] MEDS: VANCOCIN 275 MG IV (11:24)
--- NOTE | 2023-10-08 11:29 | W.PN.HOSP.TC ---
Addendum entered and electronically signed by Serafin Bhardwaj MD 10/08/23 15:07:
Patient seen and examined
Discussed with resident.
Impression/plan:
Presentation with chest pain, likely atypical, possibly demand ischemia in patient with BMI of 49, marked volume overload.
Troponin plateau at non-[place] range.
Currently chest pain-free
ECG with no evidence of ischemia.
Echocardiogram is pending
Continue aspirin
Agree with addition of IV Lasix (remains on oral Bumex) monitor for response
Chronic CHF preserved EF
Echocardiogram is pending
Continue Coreg.
Monitor response to IV diuresis.
Right lower extremity cellulitis with superficial purulence.
On IV vancomycin.
Right lower extremity Doppler negative for DVT.
Consult infectious disease service.
Wound care.
IDDM.
Hypoglycemia.
Noted improvement of hemoglobin A1c from 11.2-7.8.
In patient with CKD stage IIIb most likely decrease insulin requirements.
Reduce insulin 70/30 dose by 50% at 25 mg twice daily and monitor for recurrent hypoglycemia. Continue basal bolus protocol.
Original Note:
Today's Communication/Plan
-
Echocardiogram today
Wound care
Continue Abx
Diuresis with Lasix, replete and monitor potassium
Obtain outpatient records from senior clinical study manager
Continue Coreg
Patient requires reduced insulin, reduce 70/30 to 25 units twice daily.
Reassess in a.m.
ID consult, may need gram-negative coverage.
Assessment / Plan
Assessment / Plan
IMPRESSION:
Presentation with chest pain
Right lower extremity cellulitis in the setting of lymphedema.
Conditions Prior to Admission
Most recent hospitalization with sepsis and streptococcal bacteremia.
CAD with prior stenting in outside hospital.
Chronic CHF preserved EF.
CKD stage IIIa�B.
Essential hypertension
Dyslipidemia
IDDM
Hypothyroidism
Morbid obesity BMI 49
Chronic lymphedema/venous insufficiency
PLAN:
Presentation with atypical chest pain
-Described as mid chest pressure at rest, worsening with position or exertion.
-ECG with normal sinus rhythm and nonspecific ST abnormalities.
-Chest x-ray with no focal abnormalities.
-Right lower extremity ultrasound with no DVT.
-Elevated troponin 0.041 peak, now in the [place] range, suspect nonischemic myocardial injury.
-Serial troponin to trend.
-Hemodynamically stable, in no acute respiratory distress.
-Differential diagnosis includes possible musculoskeletal in origin given her BMI/morbid obesity, less likely acute coronary syndrome, less likely tension pneumothorax, less likely esophageal perforation, less likely acute PE given unremarkable
chest x-ray and stable respiratory status.
-Would like to rule out PE but patient not a candidate of CT angiogram given her CKD.
-Echocardiogram pending.
-Continue statin.
-Continue Coreg.
-Patient follows with Dr. Richard outpatient; obtain prior records from senior clinical study manager
-Cardiology evaluation appreciated.
Right lower extremity cellulitis in the setting of lymphedema
-Recent admission with sepsis and streptococcal bacteremia of unknown source.
-Right lower extremity Doppler negative for DVT.
-Normal white count, patient afebrile.
-Continue vancomycin, may need gram-negative coverage.
-ID following.
-Hold clindamycin.
-Continue wound care.
CKD stage IIIa�B
-Creatinine 1.8 with reduced EGFR 29.
-Hold KIA inhibitor, hold SGLT2 inhibitor.
IDDM
-Prior history of noncompliance and hemoglobin A1c of 12 ,Currently 7.8.
-Patient now with hypoglycemia
-Continue insulin 70/30 at 25 units twice daily.
-Continue glyburide.
-Basal bolus protocol.
Acute on chronic heart failure with unknown EF
-proBNP 2690, in the setting of significant lower extremity edema, representing acute on chronic heart failure.
-Echo pending; previously with preserved EF
-Volume status possibly compensated given stable respiratory status.
-IV Lasix 40 mg, monitor volume status.
-Continue preadmission regimen including Coreg, Bumex.
Hypothyroidism
-Continue levothyroxine
DVT prophylaxis
-Lovenox.
Anticipated Discharge: Within 24 hours
Subjective/Interval History
-
Date of Service: October 08, 2023
Objective Data
-
Labs:
Laboratory Results
10/08/23
06:26
WBC 6.9
Hgb 11.9 L
Hct 36.8 L
Plt Count 180
Sodium 138
Potassium 3.8
Chloride 102
Carbon Dioxide 30
BUN 28 H
Creatinine 1.8 H
Glucose 62 L
Calcium 8.4
Vital Signs:
Vital Signs
Temp Pulse Resp BP Pulse Ox
98.1 F 74 16 112/69 92
10/08/23 11:21 10/08/23 11:21 10/08/23 11:21 10/08/23 11:21 10/08/23 11:21
I&O
10/07/23 10/08/23 10/09/23
06:59 06:59 06:59
Intake Total 480 / 480 480 / 480
Balance 480 / 480 480 / 480
Review of Systems
-
History Source: Patient and Family
All other systems: Not reviewed unless documented
Constitutional: Reports No Symptoms
EENT: Reports No Symptoms Reported
Respiratory: Reports No Symptoms; Denies Trouble Breathing
Cardiac: Reports No Symptoms; Denies Chest Pain, Palpitations, Syncope or Orthopnea
Abdomen/GI: Reports No Symptoms; Denies Abdominal Pain, Nausea, Vomiting, Diarrhea or Constipated
Genitourinary: Reports Incontinence
Musculoskeletal: Reports No Symptoms
Skin: Reports Sores (Wound on anterior aspect of right lower extremity)
Neuro: Reports No Symptoms; Denies Dizzy or Headache
Endocrine: Reports No Symptoms
Allergy / Immunology: Reports No Symptoms
Physical Exam
-
General: Well Developed, No Apparent Distress, Comfortable, Conversant and Morbidly Obese; Negative Respiratory Distress
HEENT: Normocephalic and Moist Mucous Membranes
Respiratory: Clear to Auscultation and Non Labored Respirations; Negative Wheezes, Rales, Rhonchi or Crackles
Cardiac: Regular Rhythm and S1/S2; Negative Murmur or Rub
GI: Soft, Nontender, Nondistended and Normal Bowel Sounds
Musculoskeletal: No Clubbing and Other (Bilateral lymphedema)
Skin: Warm, Dry and Ulcers (Right block ulcer/cellulitis)
Neuro: Awake, Alert, Oriented and AO x 3
Psych: Calm and Intact Judgement/Insight
Data Reviewed
-
Diagnostic Radiology: Image personally visualized and interpreted, Report Reviewed by me and Discussed with Physician
Ultrasound: Image personally visualized and interpreted, Report Reviewed by me and Discussed with Physician
Labs: Labs Reviewed by me and Discussed with Physician
[2023-10-08] MEDS: NOVOLOG MIX 70/30 FLEXPEN SC (11:44)
[2023-10-08] MEDS: KCL 40 MEQ PO (12:29)
[2023-10-08] MEDS: LASIX 40 MG IV (12:49)
[2023-10-08] MEDS: NOVOLOG FLEXPEN-LOW RESISTANCE 1 UNITS SC ×2 (12:51→16:40)
--- NOTE | 2023-10-08 13:34 | CM ---
CM sent tt to physician requesting PT/OT assessment to assist in determining care needs at discharge. [facility] has had [facility] in the past but was not really eager to consider going to a SNF. Await PT/OT assessment for care needs. CM will
continue to follow for discharge planning needs.
Plan; home with [facility]; pending PT/OT recommendations and possible executive secretary social welfare needed from [facility]
--- NOTE | 2023-10-08 15:18 | CON.ID ---
Consultation
-
Date/Time Consultation Requested: 10/08/23 13:24
Date/Time Consultation Performed: 10/08/23 15:18
Requesting Provider: Dr Bhardwaj
Performing Provider: Dr Maldonado
Reason for Consultation: cellulitis
Chief Complaint / Past History
Chief Complaint
Chest pain
History of Present Illness
Ms Wallis is a 77 year old female with history of Dm2 (uncontrolled), class III obeisty who presented here yesterday for angina - chest pain is entral, 11/23 without radiation, no change with movement, lasts 10-12 minutes then abates. Also with a
weeping wound on the right leg and edema. No shortness of breath fevers or chills.
Since arrival here she has been afebrile, bp stable, without leukocytosis, no L shift, hgb 11.9, cr 1.8 which is her baseline, a1c 7.8, tropes negative x3, venous US: no dvt, cxr no infiltrate, a mrsa screen is pending, no blood cultures, currently
on vancomycin, ID is consulted for assistance with management.
Past History
Additional Past Medical History:
Depression, overactive bladder, ASCVD(two-vessel), CKD
Additional Past Surgical History:
PTCA with Stent x 2 2 years ago
Tonsillectomy and adenoidectomy
Allergy History:
No Known Allergies Allergy (Verified 02/04/23 01:31)
Medications Reviewed: Yes
Social History
Tobacco: Former Smoker
Alcohol: Occasional
Drug: None
Family History
Family History: Not Pertinent
Review of Systems
Review of Systems
General: Negative Fever or Chills
All systems: All other systems were reviewed and were negative
Vital Signs
Temp Pulse Resp BP Pulse Ox
98.1 F 74 16 112/69 92
10/08/23 11:21 10/08/23 12:49 10/08/23 11:21 10/08/23 12:49 10/08/23 13:16
Physical Exam
Physical Exam
Constitutional: No Acute Distress
Cardiovascular: Regular Rate and S1/S2; Negative Murmur or Rub
Pulmonary: Clear and Symmetric; Negative Wheezes, Rales or Rhonchi
Gastrointestinal: Soft, Non Tender, Non Distended and Normal Bowel Sounds
Skin: Warm and Dry; Negative Rash or Jaundice
Lab / Diagnostic Study Results
10/08/23 06:26
10/08/23 06:26
Abs Immat Gran (auto) 0.0 10^3/uL (0-0.05) 10/08/23 06:26
Absolute Neuts (auto) 4.5 10^3/uL (1.4-6.5) 10/08/23 06:26
Absolute Lymphs (auto) 1.4 10^3/uL (1.2-3.4) 10/08/23 06:26
Absolute Monos (auto) 0.6 10^3/uL (0.1-0.6) 10/08/23 06:26
Absolute Basos (auto) 0.0 10^3/uL (0-0.2) 10/08/23 06:26
Immature Gran % 0.3 % (0-0.5) 10/08/23 06:26
Neutrophils % 65.5 % (42.2-75.2) 10/08/23 06:26
Lymphocytes % 20.3 % (20.5-51.1) L 10/08/23 06:26
Monocytes % 8.6 % (1.7-9.3) 10/08/23 06:26
Eosinophils % 4.9 % (0-6) 10/08/23 06:26
Basophils % 0.4 % (0-2) 10/08/23 06:26
Microbiology Results
Micro:
10/07/23 18:31 MRSA Screen - Pending
Nose
Assessment / Plan
Cellulitis
Edema with chronic wounds
CKD
Class III obesity
- if james fever then send blood cultures x2
- start cefazolin 2 gm dosed for renal insufficiency
- elevation, too tender for compression
- follow clinically
[2023-10-08] MEDS: ANCEF 10 IV (16:28)
[2023-10-08 16:40] LABS: Glucose - Point of Care 170 mg/dl (70-99)
[2023-10-08] MEDS: NOVOLOG MIX 70/30 FLEXPEN 25 UNITS SC (16:41)
[2023-10-08] MEDS: LOVENOX 40 MG SC (18:26)
[2023-10-08] MEDS: KCL 20 MEQ PO (18:26)
[2023-10-08 21:26] LABS: Glucose - Point of Care 204 mg/dl (70-99)
[2023-10-09] MEDS: ANCEF 10 IV ×2 (01:09→09:46)
[2023-10-09 03:36] VITALS: BP 161/60
[2023-10-09] MEDS: SYNTHROID 150 MCG PO (05:25)
[2023-10-09 06:00] VITALS: BMI 48.2
[2023-10-09 07:26] LABS: Glucose - Point of Care 239 mg/dl (70-99)
[2023-10-09 08:07] LABS: % Basophils 0.3 % (0-2); % Eosinophils 3.9 % (0-6); % Immature Granulocytes 0.3 % (0-0.5); % Monocytes 8.7 % (1.7-9.3); % Neutrophils 66.8 % (42.2-75.2); Absolute Eosinophils 0.3 10^3/uL (0-0.7); Absolute Lymphocytes 1.3 10^3/uL (1.2-3.4); Absolute Monocytes 0.6 10^3/uL (0.1-0.6); Absolute Neutrophils 4.2 10^3/uL (1.4-6.5); Hematocrit 35.9 % (37.0-47.0); Hemoglobin 11.8 g/dL (12.0-16.0); Mean Corp Hgb Conc. 32.9 g/dL (33.0-37.0); Mean Corpuscular Hgb 28.9 pg (27.0-31.0); Mean Platelet Volume 11.6 fL (7.4-10.4); Nucleated Red Blood Cells % 0 %; Platelet Count 163 10^3/uL (130-400); Red Blood Cell Count 4.08 10^6/uL (4.20-5.40); Red Cell Dist. Width 15.7 % (11.5-14.5); White Blood Cell Count 6.3 10^3/uL (4.8-10.8)
[2023-10-09 08:22] LABS: Vancomycin Random 16.6 ug/ml
[2023-10-09 08:36] LABS: Blood Urea Nitrogen 28 mg/dl (7-17); Calcium 8.5 mg/dl (8.4-10.2); Carbon Dioxide 27 mmol/L (22-30); Chloride 102 mmol/L (98-107); Estimated Creatinine Clearance 38 ml/min; Glucose 240 mg/dl (70-99); Potassium 4.5 mmol/L (3.5-5.1); Sodium 136 mmol/L (135-145); eGFR 29.02
[2023-10-09] MEDS: NOVOLOG FLEXPEN-LOW RESISTANCE 2 UNITS SC (09:08)
[2023-10-09] MEDS: NOVOLOG MIX 70/30 FLEXPEN 25 UNITS SC (09:08)
[2023-10-09] MEDS: ASPIRIN ENTERIC COATED 325 MG PO (09:12)
[2023-10-09] MEDS: PROTONIX 40 MG PO (09:12)
[2023-10-09] MEDS: LEXAPRO 10 MG PO (09:13)
[2023-10-09] MEDS: BUMEX 1 MG IV (09:13)
[2023-10-09] MEDS: COREG 12.5 MG PO (09:13)
[2023-10-09] MEDS: DESENEX/MITRAZOL/ZEASORB 1 APPLIC TOPICAL (09:13)
[2023-10-09] MEDS: LIPITOR 80 MG PO (09:13)
[2023-10-09] MEDS: KCL 20 MEQ PO (09:13)
[2023-10-09 10:59] VITALS: BP 182/80
--- NOTE | 2023-10-09 11:10 | W.PN.CARDCBS ---
Today's Communication / Plan
-
Is diuresing on IV Bumex. Will discharge on Bumex 1 mg p.o. twice daily.
Continue Coreg. Will add hydralazine 25 mg p.o. twice daily with EF of 35 to 40%. Creatinine stable at 1.8. Would avoid KIA/ARB/Entresto/Aldactone
Okay for discharge from cardiology standpoint and follow-up with Dr. Richard as outpatient to further consider ischemic evaluation.
Continue aspirin and atorvastatin.
Impression / Plan
-
Primary [facility]: previously seen by Dr. Grande
Assessment:
Presentation with CP
RLE edema/wounds
Elevated troponin, peak 0.041, suspected non-ischemic myocardial injury
acute on chronic heart failure reduced EF, proBNP 2690
CAD
status post LAD/D1 w/ bifurcation ANNETTE 09/22/2021 ([facility])
Chronic HF mildly reduced EF, 45%
Chronic venous insufficiency/lymphedema
CKD
hypertension
Hyperlipidemia
diabetes
hypothyroidism
Morbid obesity
stroke 04/2017
History of GIB w/ transfusion 09/2021
Echo 10/08/2023: EF 35 to 40% with apical akinesis, PA pressure 20
Echo 09/05/2021 EF 45 to 50% with mid and apical anterior septal and apical hypokinesis. Stage II diastolic dysfunction, mild MR, mild TR with PAP 60 mmHg
Lexiscan nuclear stress test 09/05/2021: Positive for anteroapical defect suggestive of ischemia
Plan:
-Patient presented 10/07/2023 for evaluation of intermittent chest pain over the last several days. Different than prior presentation resulting in stents several years ago.
-Elevated troponin, peak 0.041, suspected non-ischemic myocardial injury due to heart failure and chronic kidney disease
-Patient without chest pain for last EKG sinus rhythm without acute ischemic changes noted, stable compared to prior EKGs
-Echo with EF of 35 to 40%.
-Acute on chronic heart failure, proBNP 2690 with significant lower extremity edema. She is diuresing. Will continue IV Bumex while hospitalized. Okay to switch to 1 mg p.o. twice daily of Bumex upon discharge.
-Continue Coreg, CKD prevents initiation of KIA-i/ARB, Aldactone. Also has cellulitis and recent admission with sepsis and streptococcal bacteremia unclear source. Would hold on SGLT2 inhibitor at this time. Would add hydralazine 25 mg p.o. twice
daily consider nitrates as outpatient.
-Consider outpatient ischemic evaluation through her primary sugar grinder Dr. Richard. She would be at elevated risk for ATN with cath due to her chronic kidney disease. Differential should also include PE, however with kidney function would avoid
CT. right lower extremity ultrasound negative for DVT in ER
-Continue local wound care to right lower extremity. Further treatment per primary service
-Discussed with patient and son at bedside.
Progress Note - [facility]
Subjective
Date of Service: October 09, 2023
She overall feels slightly better. Her breathing is unchanged.
Objective
Labs:
10/09/23 07:39
10/09/23 07:39
Labs
Hgb 11.8 g/dL (12.0-16.0) L 10/09/23 07:39
Hct 35.9 % (37.0-47.0) L 10/09/23 07:39
Plt Count 163 10^3/uL (130-400) 10/09/23 07:39
Sodium 136 mmol/L (135-145) 10/09/23 07:39
Potassium 4.5 mmol/L (3.5-5.1) 10/09/23 07:39
BUN 28 mg/dl (7-17) H 10/09/23 07:39
Creatinine 1.8 mg/dL (0.6-1.0) H 10/09/23 07:39
Glucose 240 mg/dl (70-99) H 10/09/23 07:39
Troponins
10/07/23 10/07/2310/07/24
11:51 13:36 17:38
Troponin I 0.041 H* 0.036 H* 0.038 H*
10/08/23
01:07
Troponin I 0.041 H*
Vital Signs and I&O:
Vital Signs
Temp Pulse Resp BP Pulse Ox
98.7 F 86 18 182/80 95
10/09/23 10:59 10/09/23 10:59 10/09/23 10:59 10/09/23 10:59 10/09/23 10:59
Vital Signs
Temp Pulse Resp BP Pulse Ox
98.7 F 86 18 182/80 95
10/09/23 10:59 10/09/23 10:59 10/09/23 10:59 10/09/23 10:59 10/09/23 10:59
Intake & Output
10/07/23 10/08/23 10/09/23 10/10/23
06:59 06:59 06:59 06:59
Intake Total 480 / 480 1680 / 1680
Output Total 1000 / 1000
Balance 480 / 480 680 / 680
Physical Exam
Physical Exam
GEN: No distress, awake, Ox3
HEENT: supple, anicteric, mmm
LUNGS: CTA, no wheezes/rales
CV: Reg, S1/S2, 1/6 syst LSB, no murmur
ABD: soft, BS+, NT/ND
EXT: + edema
NEURO: Gross non-focal
SKIN: chronic stasis changes
[2023-10-09] MEDS: APRESOLINE 25 MG PO (11:18)
--- NOTE | 2023-10-09 11:32 | W.PN.ID1 ---
Date of Service
Date of Service: October 09, 2023
Today's Communication
switch to keflex 500 mg PO QID x 7 day total course through
Assessment / Plan
Cellulitis - nonpurulent
Edema with chronic wounds
CKD
Class III obesity
- if james fever then send blood cultures x2
- switch to keflex 500 mg PO QID x 7 day total course through
- agree with outpatient wound care referral
- follow up with pcp
Chief Complaint
-: Cellulitis
Subjective / Review of Systems
afebrile
bp stable
without leukocytosis
cr stable
mrsa screen negative
Vital Signs / Physical Exam
Vital Signs
Vital Signs
Temp Pulse Resp BP Pulse Ox
98.7 F 86 18 182/80 95
10/09/23 10:59 10/09/23 10:59 10/09/23 10:59 10/09/23 10:59 10/09/23 10:59
Physical Exam
Constitutional: No Acute Distress
Cardiovascular: Regular Rate and S1/S2; Negative Murmur or Rub
Pulmonary: Clear and Symmetric; Negative Wheezes or Rales
Gastrointestinal: Soft, Non Tender, Non Distended and Normal Bowel Sounds
Skin: Warm, Dry and Rash (erythema markedly improved - essentially resolved; legs are chronically tender per her ); Negative Jaundice
Objective Data
Lab Data
Lab Results
10/09/23 07:39
10/09/23 07:39
Estimated Creat Clear 38 ml/min 10/09/23 07:39
Total Bilirubin Cancelled 10/07/23 11:51
AST Cancelled 10/07/23 11:51
ALT Cancelled 10/07/23 11:51
Alkaline Phosphatase Cancelled 10/07/23 11:51
Most recent labs reviewed.
Micro Results:
10/07/23 18:31 MRSA Screen - Final
Nose No Methicillin Resistant Staphylococcus aureus isolated.
Care Review
Plan reviewed with: Physician (Dr Segundo sen, abx)
--- NOTE | 2023-10-09 11:32 | W.PN.HOSP.TC ---
Addendum entered and electronically signed by Suzanne Raymond MD 10/09/23 15:42:
total DC time 35 min
Original Note:
Today's Communication/Plan
-
DC home today woth
Assessment / Plan
Assessment / Plan
IMPRESSION:
Presentation with chest pain
Right lower extremity cellulitis in the setting of lymphedema.
Conditions Prior to Admission
Most recent hospitalization with sepsis and streptococcal bacteremia 01/2023
CAD with prior stenting in outside hospital.
Chronic CHF preserved EF.
CKD stage IIIa�B.
Essential hypertension
Dyslipidemia
IDDM
Hypothyroidism
Morbid obesity BMI 49
Chronic lymphedema/venous insufficiency
PLAN:
# Presentation with atypical chest pain, resolved
-Described as mid chest pressure at rest, worsening with position or exertion.
-ECG with normal sinus rhythm and nonspecific ST abnormalities.
-Chest x-ray with no focal abnormalities.
-Troponin plateaued at 0.04
-Hemodynamically stable, in NO acute respiratory distress.
-Echo noted reduced ejection fraction at 35-40%, Stage I diastolic dysfunction suggestive of abnormal relaxation.
-Continue statin.
-Continue Coreg.
-Added Hydralazine 25 mg BID
-Patient follows with Dr. Richard outpatient
-Cardiology evaluation appreciated.
Right lower extremity cellulitis in the setting of lymphedema
Chronic BL LE pain
-Recent admission with sepsis and streptococcal bacteremia of unknown source.
-Right lower extremity Doppler negative for DVT.
-Normal white count, patient afebrile.
-ID following, IV cefazolin 2 g -> �Keflex 500 mg PO QID x 7 day total course through
-Continue wound care outpt, pt informed
CKD stage IIIa�B
-Creatinine 1.8 with reduced EGFR 29.
-Hold KIA inhibitor, hold SGLT2 inhibitor.
IDDM
-Prior history of noncompliance and hemoglobin A1c of 12 , currently 7.8.
-Noted hypoglycemia and insulin 70/30 was adjusted to 25 units twice daily.
-Continue glyburide.
-Basal bolus protocol.
Acute on chronic heart failure with unknown EF
-proBNP 2690, in the setting of significant lower extremity edema, representing acute on chronic heart failure.
-Echo as above
-Volume status possibly compensated given stable respiratory status.
-diuresing on IV Bumex.�Per card, will discharge on Bumex 1 mg p.o. twice daily.
-Continue preadmission regimen including Coreg, Bumex.
-Added hydralazine 25 mg p.o. twice daily with EF of 35 to 40%.� Creatinine at 1.8- would avoid KIA/ARB/Entresto/Aldactone
Hypothyroidism
-Continue levothyroxine
DVT prophylaxis-Lovenox.
DW ID
DW RN
Anticipated Discharge: Today
Subjective/Interval History
-
Date of Service: October 09, 2023
Objective Data
-
Labs:
Laboratory Results
10/09/23
07:39
WBC 6.3
Hgb 11.8 L
Hct 35.9 L
Plt Count 163
Sodium 136
Potassium 4.5
Chloride 102
Carbon Dioxide 27
BUN 28 H
Creatinine 1.8 H
Glucose 240 H
Calcium 8.5
Vital Signs:
Vital Signs
Temp Pulse Resp BP Pulse Ox
37.1 C 86 18 182/80 95
10/09/23 10:59 10/09/23 10:59 10/09/23 10:59 10/09/23 10:59 10/09/23 10:59
I&O
10/08/23 10/09/23 10/10/23
06:59 06:59 06:59
Intake Total 480 / 480 1680 / 1680
Output Total 1000 / 1000
Balance 480 / 480 680 / 680
Review of Systems
-
All other systems: Reviewed and negative
Physical Exam
-
General: Well Developed, No Apparent Distress, Comfortable, Conversant and Morbidly Obese; Negative Respiratory Distress
HEENT: Normocephalic
Respiratory: Clear to Auscultation and Non Labored Respirations; Negative Wheezes, Rales, Rhonchi, Crackles or Accessory Resp Muscle Use
Cardiac: Regular Rhythm and S1/S2; Negative Murmur or Rub
GI: Soft, Nontender, Nondistended and Normal Bowel Sounds
Musculoskeletal: No Clubbing and Other (Bilateral lymphedema)
Skin: Warm, Dry and Ulcers (Right block ulcer/cellulitis)
Neuro: Awake, Alert, Oriented and AO x 3
Psych: Calm and Intact Judgement/Insight
Data Reviewed
-
Labs: Labs Reviewed by me
[2023-10-09 12:05] VITALS: BP 160/70
[2023-10-09] MEDS: KEFLEX 500 MG PO (12:06)
[2023-10-09 12:10] LABS: Glucose - Point of Care 285 mg/dl (70-99)
[2023-10-09] MEDS: NOVOLOG FLEXPEN-LOW RESISTANCE 3 UNITS SC (12:10)
--- NOTE | 2023-10-09 12:29 | CM ---
entered order for dc.
spoke with Anil he will drive her home.
PT OT refused by patient.
Pt requested [facility] at [facility].
Referral placed in care port
PLAN Home with [facility] fax [phone]
--- NOTE | 2023-10-09 15:15 | W.DCSUMMARY ---
Discharge Summary
Discharge Data
Date of Admission: 10/07/23
Date of Discharge: 10/09/23
-
Pending Results: No
Hospital Course
Principal Diagnosis:
Chronic Diagnoses:�
Chronic kidney disease stage III
Insulin-dependent diabetes
Streptococcal bacteremia 01/2023
Coronary artery disease with prior stenting from outside hospital.
Chronic heart failure with preserved ejection fraction.
Essential hypertension
Dyslipidemia
Hypothyroidism
Morbid obesity BMI 48
Chronic bilateral lower extremity lymphedema/venous insufficiency
Consultations:�
Infectious Disease
Cardiology
Procedures:�
None
Clinical course:�
This is a 77-year-old female, with past medical history as stated above, who presented with atypical chest pain. She also had right lower extremity cellulitis in setting of chronic lymphedema.
Problem 1:
Resolved atypical chest pain.
Her ECG showed normal sinus rhythm and nonspecific ST abnormalities.
Her Chest x-ray showed no focal abnormalities.
Her Troponin plateaued at 0.04.
She had been hemodynamically stable, and was in NO acute respiratory distress.
Her Echo showed reduced ejection fraction at 35-40%, Stage I diastolic dysfunction suggestive of abnormal relaxation.
She can continue with her prior to admission Coreg as well as Lipitor.
Hydralazine was added by cardiology and she was discharged with 50 mg twice daily for her atypical chest pain and better blood pressure control.
She has been informed to follow up with her outpatient assistant construction superintendent Dr. Richard.
Problem 2:
Right lower extremity cellulitis in setting of chronic lymphedema.
Her right lower extremity Doppler was negative for DVT.
She received IV cefazolin while in the hospital and was discharged with Keflex 500 mg PO QID x 7 day through per ID recommendation.
Problem 3:
Acute on chronic heart failure with reduced EF.
She received IV Bumex while in the hospital and was discharged with Bumex 1 mg p.o. twice daily going forward per cardiology.
She can continue with her prior to admission Coreg as well as Lipitor.
Hydralazine was added by cardiology and she was discharged with 50 mg twice daily for her atypical chest pain and better blood pressure control.
As for the rest of her medical problems, they were stable during her hospital stay.
Discharge Plan
-
Patient Disposition: Home with Home Care
Discharge Diagnosis/Procedures: atypical chest pain- resolved; Right lower extremity cellulitis in the setting of lymphedema
Condition: Fair
Diet: As tolerated, Low Fat, Low Cholesterol, Low Sodium and Restrict fluids to 64 oz
Activity: As tolerated
Driving Restrictions: As prior to admission
Blood Work: BMP in 1 week, result to PCP
Activity Restrictions/Additional Instructions:
Continue�Keflex 500 mg daily every 6 hours x 7 day
Take Bumex 1 mg twice daily.
We have added hydralazine, take 50 mg twice daily
Referrals:
Fuentes Ann, [Family Provider] - in less than 1 week
Prescriptions:
New
cephalexin 500 mg Capsule
500 mg PO QID 7 Days Qty: 28 0RF
hydralazine 50 mg tablet
50 mg PO Q12H Qty: 60 0RF
Continued
atorvastatin 80 mg Tablet
80 mg PO DAILY
escitalopram oxalate 10 mg Tablet
10 mg PO DAILY
levothyroxine 150 mcg Tablet
150 mcg PO DAILY
omeprazole 20 mg Tablet,Delayed Release (Dr/Ec)
20 mg PO DAILY
carvedilol 12.5 mg Tablet
12.5 mg PO BID
insulin asp prt-insulin aspart [Novolog Mix 70-30 U-100 Insuln] 100 unit/mL (70-30) Solution
1 sliding scale dose SC AC
Changed
bumetanide 1 mg Tablet
1 mg PO Q12H Qty: 60 0RF
Discontinued
clindamycin HCl 300 mg Capsule
300 mg PO Q6H
Patient Comments:
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
Discharge Orders:
Discharge Patient (As Directed); Ordered 10/09/23
Ordered By: Suzanne Raymond
Discharge Date and Time
Discharge Date/Time: 10/09/23 14:36
== END 2023-10-09 14:36 | disposition home health service (06) | DRG 291 ==
LOC: 4 EAST ACU 15:50
PROVIDERS: Physician Assistant; Student in an Organized Health Care Education/Training Program; ADMITTING PHYSICIAN Internal Medicine; ATTENDING PHYSICIAN Internal Medicine; CONSULT PHYSICIAN Nuclear Medicine Nuclear Cardiology; CONSULT PHYSICIAN Student in an Organized Health Care Education/Training Program; EMERGENCY PHYSICIAN Emergency Medicine; FAMILY PHYSICIAN Family Medicine
DX: I13.0 Hypertensive heart and chronic kidney disease with heart failure and stage 1 through stage 4 chronic kidney disease, or unspecified chronic kidney disease (principal); I50.43 Acute on chronic combined systolic (congestive) and diastolic (congestive) heart failure; Z68.42 Body mass index [BMI] 45.0-49.9, adult; I5A Non-ischemic myocardial injury (non-traumatic); I87.2 Venous insufficiency (chronic) (peripheral); I89.0 Lymphedema, not elsewhere classified; E78.00 Pure hypercholesterolemia, unspecified; E11.22 Type 2 diabetes mellitus with diabetic chronic kidney disease; N18.31 Chronic kidney disease, stage 3a; E03.9 Hypothyroidism, unspecified; E66.01 Morbid (severe) obesity due to excess calories; Z79.84 Long term (current) use of oral hypoglycemic drugs; Z95.5 Presence of coronary angioplasty implant and graft
CPT/HCPCS: 71046; 80048; 80202; 82962; 83036; 83880; 84132; 84439; 84443; 84484; 85025; 87070; 93005; 93306; 93971; 99285

== ENCOUNTER 2024-04-25 11:09 | Inpatient (IN) | payer OTHER, SELFPAY ==
[2024-04-25] VITALS (9 sets, daily range): BP systolic 111–148; BP diastolic 38–74; BMI 47.6; BMI 49.4
--- NOTE | 2024-04-25 08:11 | ED.GENMED ---
History of Present Illness
General
Chief Complaint: Cold/Flu/URI Symptoms
Source: patient and ambulance crew
Exam Limitations: clinical condition
Time Seen by Provider: 04/25/24 07:37
Nursing documentation reviewed up to this point in time: agreed with
History of Present Illness
History of Present Illness:
78 y/o F with h/o CHF on bumex, EF 35%
IDDM
htn
obesity
here with several days of gen weakness and cough
apparently another family member has been sick with URI sxs
pt was not tested for covid
she says she noramlly walks some but hasn't been able to walk because of feeling too weak
she has chronic break down in her buttocks and skin of LE
pt is poor historian
she has nausea, some generalized belly pain
denies cp, sob, vomiting
Past History
Past History
ED Past Medical History: HTN and NIDDM
Review of Systems
Review of Systems
Allergies reviewed?: Yes
All Other Systems: Not applicable
Phy Exam
Physical Exam
Physical Exam:
GENERAL: Alert , tachypneic, uncomfortable
EYE: pupils equal and reactive
NECK: Supple
ENT: o/p clr, mmm.
CARDIAC: Regular rate and rhythm .
LUNGS: to, diminished, some crackles, occasional cough
ABDOMEN: Obese, questionable tenderness, repeated exam is inconsistent
perineum erythema/skin breakdown stage II decub
she has diffuse erythema in her perineum/gluteal folds and vaginal folds that appears to likely be from breakdown vs elzbieta/intertrigo
NEUROLOGICAL: Alert and oriented, no focal neuro deficits
SKIN: Warm and dry, patient has intertrigo in her groin, moderate breakdown in her perineum and gluteal cleft with stage II decub, some erythema faintly to the posterior thigh
MUSCULOSKELETAL: Moderate edema bilaterally o edema, well perfused. neg jarett's sign
PSYCH: Normal and appropriate interaction.
Course
Orders/Labs/Results
Orders:
Orders
04/25/24 08:03
Electrocardiogram (*1) Urgent
Reason for Study: Abdominal Pain
Cardiac Monitoring- Treatment ONCE
Acetaminophen [Tylenol] 1,000 mg PO NOW STA
04/25/24 08:04
EKG- Treatment ONCE
CR Chest Portable - 1 View Urgent
Comment:
Reason For Exam: fever
Reason Study Needs to be Portable: Other
If Reason is Other, explain: isolation
04/25/24 08:15
COVID-19 Antigen Urgent
Source: Nasal Swab
Urinalysis Reflex To Culture Urgent
Date Specimen was Collected: 04/25/24
Time Specimen was Collected: 08:13
Urine Microscopic Reflex Cult Urgent
Urine Culture Urgent
ELVIRA Source: U
Specimen Description:
Date Specimen was Collected: 04/25/24
Time Specimen was Collected: 08:13
04/25/24 08:55
Complete Blood Count/With Diff Urgent
Comprehensive Metabolic Panel Urgent
Lactic Acid Urgent
NT-proBNP Urgent
Blood Culture Urgent
ELVIRA Source: Blood/Venous
Specimen Description:
04/25/24 09:29
CefTRIAXone [Rocephin] 1,000 mg IV NOW STA
Dexamethasone Sod Phosphate [Decadron] 6 mg IV NOW STA
04/25/24 09:36
Sterile Water [Sterile Water For Injection] 10 ml .ROUTE .STK-MED ONE
Abnormal Lab Results
04/25/24 04/25/24
08:15 08:55
WBC 14.9 H 10^3/uL
(4.8-10.8)
Hgb 11.2 L g/dL
(12.0-16.0)
Hct 34.8 L %
(37.0-47.0)
MCV 79.5 L fL
(81.0-99.0)
MCH 25.6 L pg
(27.0-31.0)
MCHC 32.2 L g/dL
(33.0-37.0)
RDW 18.8 H %
(11.5-14.5)
MPV 10.5 H fL
(7.4-10.4)
Abs Immat Gran (auto) 0.1 H 10^3/uL
(0-0.05)
Absolute Neuts (auto) 13.1 H 10^3/uL
(1.4-6.5)
Absolute Lymphs (auto) 1.0 L 10^3/uL
(1.2-3.4)
Immature Gran % 0.7 H %
(0-0.5)
Neutrophils % 88.2 H %
(42.2-75.2)
Lymphocytes % 7.0 L %
(20.5-51.1)
Sodium 134 L mmol/L
(135-145)
Chloride 97 L mmol/L
(98-107)
BUN 28 H mg/dl
(7-17)
Creatinine 1.8 H mg/dL
(0.6-1.0)
Glucose 240 H mg/dl
(70-99)
Total Protein 6.1 L g/dl
(6.3-8.2)
Albumin 3.4 L g/dl
(3.5-5.0)
Urine Nitrite (Reflex) Positive A
(Negative)
Leukocyte Esterase Rfl 2+ A
(Negative)
Urine WBC (Reflex) 26-30 A /HPF
(0-5)
Urine Bacteria (Reflex) Many A
(Negative)
Urine Glucose 1+ A
(Negative)
Urine Albumin (Reflex) 3+ A
(Neg - Trace)
SARS-CoV-2 Antigen Positive A
(Negative)
04/25/24 08:55
04/25/24 08:55
Vital Signs
Initial and Last Documented VS:
Initial Vital Signs
Temp Pulse Resp BP Pulse Ox
99.2 F 99 24 111/38 86
04/25/24 07:37 04/25/24 07:37 04/25/24 07:37 04/25/24 07:37 04/25/24 07:37
Last Documented Vital Signs
Temp Pulse Resp BP Pulse Ox
102.1 F H 86 22 134/60 95
04/25/24 08:00 04/25/24 09:30 04/25/24 09:30 04/25/24 09:00 04/25/24 09:30
MDM/Problems Addressed
Differential Diagnosis Includes:
covid, uti, sepsis, pneumonia, chf, arabella's
MDM/Problems Addressed:
78 y/o F
chf on bumex
ef 35%
wears o2 sometimes
poor historian
911 called by
pt has been weak for a few days, cough
she c/o nausea and pain in her perineum and buttocks
febrile rectally 102.1
pulse ox 87% on RA; improve don o2
mildly tachypneic and some crackels in her lungs, which are diminished; no wheezes
she appears to be deconditioned, sitting in wet diaper, has intertrigo and a lot of skin sensitivity in this area
she has stage II ulceration
also has edema in her legs with some weeping and mild pink skin changes
i notice area of her posterior right thigh that is also warm and pink
abdomen seems nontender
covid is pos
will require admission for her new o2 requirement (usually only need at night)
straight cath urine is pos as well
no obvious pna on cxr indep reviewed but could have some mild edema
considered ct scan for abd/perineum breakdown
do not suspect this is fourniers though pt is diabetic
will see what lactic acid is
lactate normal
will admit
iv abx for urine
*Critical Care Note
Total Time (30-74mins, 75-104mins- exclusive of procedures): Not Applicable
ED Attending Note
-
Portions of this chart may have been created with voice recognition software.� Occasional wrong word or��sound alike� substitutions may have occurred due to the inherent limitations of voice recognition software.
Discharge Plan
Departure
Patient Disposition: Admit
Date of Disposition: 04/25/24
Time of Disposition: 09:32
Admit to: IMU
Presentation/result/management discussed w/ accepting MD/DO: Hospitalist
Condition: Fair
Covid-19: Not Applicable
Discharge Problem:
UTI (urinary tract infection), Hypoxia, COVID-19
Prescriptions:
No Action
escitalopram oxalate 10 mg Tablet
20 mg PO DAILY
levothyroxine 150 mcg Tablet
150 mcg PO DAILY
carvedilol 12.5 mg Tablet
12.5 mg PO BID
insulin asp prt-insulin aspart [Novolog Mix 70-30 U-100 Insuln] 100 unit/mL (70-30) Solution
50 sliding scale dose SC BID
clindamycin HCl 300 mg Capsule
300 mg PO Q6H
glipizide 5 mg Tablet Extended Release 24hr
5 mg PO DAILY
atorvastatin [Lipitor] 80 mg Tablet
80 mg PO DAILY
meclizine 25 mg Tablet
25 mg PO BIDPRN PRN (Reason: dizziness )
omeprazole 20 mg Tablet,Delayed Release (Dr/Ec)
20 mg PO DAILY
bumetanide 1 mg tablet
1 mg PO DAILY
Referrals:
UNKNOWN,NO INTERVIEW [Family Provider] -
Interventions
Interventions:
*Risk Screen - Suicide Last Done: 04/25/24 07:37
*General Assessment Last Done: 04/25/24 08:07
*Neglect/Abuse Screening Last Done: 04/25/24 07:37
ED- Fall Risk Assessment Last Done: 04/25/24 08:07
*ED COVID-19 Vaccine History Last Done: 04/25/24 07:37
ED- Pulmonary Assessment Last Done: 04/25/24 08:07
Discharge Date and Time
Print Language: MONGOLIAN
[2024-04-25 08:26] LABS: Urine Albumin 3+ (Neg - Trace); Urine Bilirubin Negative (Negative); Urine Character Slightly Cloudy (Clear); Urine Color Yellow; Urine Glucose 1+ (Negative); Urine Ketone Negative (Negative); Urine Leukocyte 2+ (Negative); Urine Nitrite Positive (Negative); Urine Occult Blood Negative (Negative); Urine Specific Gravity 1.015 (<1.030); Urine Urobilinogen Negative (Neg - 1+)
[2024-04-25] MEDS: TYLENOL 1000 MG PO (08:26)
--- NOTE | 2024-04-25 08:30 | EDRN ---
Received patient from home via EMS. Patient unsure why she's here. Patient stated 'I don't feel good' and answers health questions 'I don't know'. Per EMS they were told by family that the patient has been coughing and increased weakness over
several days and has not been able to get out of her recliner. Patient stated that she has been walking using her walker. Patient arrived on O2 2LNC. Patient stated that she wears O2 at home when she needs it but does not know how much she wears.
Patient screams 'It hurts' when you touch anywhere on her body. Patient arrived with dressings on bilateral lower legs. Patient with wounds to both legs. Patient stated that her changes the dressings and does not know what he puts on them.
Patient with sacral decub. Perineum excoriated. +redness in abdominal folds.
[2024-04-25 08:35] LABS: COVID-19 Antigen Positive (Negative)
[2024-04-25 09:10] LABS: Urine Bacteria Many (Negative); Urine Red Blood Cell 0-2 /HPF (0-2); Urine White Cell 26-30 /HPF (0-5)
[2024-04-25 09:15] LABS: % Basophils 0.3 % (0-2); % Immature Granulocytes 0.7 % (0-0.5); % Monocytes 3.8 % (1.7-9.3); % Neutrophils 88.2 % (42.2-75.2); Absolute Basophils 0.1 10^3/uL (0-0.2); Absolute Immature Granulocytes 0.1 10^3/uL (0-0.05); Absolute Monocytes 0.6 10^3/uL (0.1-0.6); Absolute Neutrophils 13.1 10^3/uL (1.4-6.5); Hematocrit 34.8 % (37.0-47.0); Hemoglobin 11.2 g/dL (12.0-16.0); Mean Corp Hgb Conc. 32.2 g/dL (33.0-37.0); Mean Corpuscular Hgb 25.6 pg (27.0-31.0); Mean Corpuscular Volume 79.5 fL (81.0-99.0); Mean Platelet Volume 10.5 fL (7.4-10.4); Nucleated Red Blood Cells % 0 %; Platelet Count 202 10^3/uL (130-400); Red Blood Cell Count 4.38 10^6/uL (4.20-5.40); Red Cell Dist. Width 18.8 % (11.5-14.5); White Blood Cell Count 14.9 10^3/uL (4.8-10.8)
[2024-04-25 09:24] LABS: Lactic Acid 1.7 mmol/L (0.7-2.0)
[2024-04-25 09:25] LABS: ALT (SGPT) < 10 U/L (0-35); AST (SGOT) 14 U/L (14-36); Albumin 3.4 g/dl (3.5-5.0); Alkaline Phosphatase 105 U/L (38-126); Blood Urea Nitrogen 28 mg/dl (7-17); Calcium 8.4 mg/dl (8.4-10.2); Carbon Dioxide 26 mmol/L (22-30); Chloride 97 mmol/L (98-107); Estimated Creatinine Clearance 37 ml/min; Glucose 240 mg/dl (70-99); Potassium 4.1 mmol/L (3.5-5.1); Sodium 134 mmol/L (135-145); Total Bilirubin 0.9 mg/dl (0.2-1.3); Total Protein 6.1 g/dl (6.3-8.2); eGFR 28.84
[2024-04-25 09:35] LABS: NT-proBNP 13600 pg/ml
[2024-04-25] MEDS: DECADRON 6 MG IV (09:37)
[2024-04-25] MEDS: ROCEPHIN 1000 MG IV (09:37)
--- NOTE | 2024-04-25 10:33 | HPS.HSE ---
Family Physician
-
Family Physician: NO INTERVIEW UNKNOWN
Chief Complaint
-
weakness, cough
History of Present Illness
78-year-old female with a past medical history of stage IIIb chronic kidney disease, CHF, hypertension, type 2 diabetes, hypothyroidism, and coronary artery disease presents with a 1 week history of cough and weakness. Patient's spouse reports that
patient has been having worsening weakness and cough. She usually can use a cane, or wheelchair with going far distances. However, her weakness has progressively worsened in the last 1 to 2 days, so brought her to the emergency room. She
was found to be febrile, and be COVID-positive. She also has a probable urinary tract infection. There is erythema in her abdominal folds and groin region. She was hypoxic, satting 87% on room air.
Medical History
Past Medical History
Past Medical History: Reports HTN, Hypothyroidism and IDDM; Denies CAD or PR
Additional Past Medical History:
Depression, overactive bladder, ASCVD(two-vessel), CKD
Past Surgical History: Reports Other
Additional Past Surgical History:
PTCA with Stent x 2 2 years ago
Tonsillectomy and adenoidectomy
Social History
Tobacco: Former Smoker (Quit about 12 years ago)
Alcohol: Occasional
Drug: None
Personal:
Living: With Family
Family History
Family History: Diabetes and Hypertension
Allergies / Home Medications
Allergies reflects when Allergies were last updated in [employer]
Home Medications with original date entered in [employer]
Allergy/Medication List:
Allergies
Allergy/AdvReac Type Severity Reaction Status Date / Time
No Known Allergies Allergy Verified 04/25/24 07:49
Home Medications Table - record
�Medication �Instructions �Recorded �Confirmed
escitalopram oxalate 10 mg tablet 20 mg PO DAILY depression/anxiety 02/04/23 04/25/24
levothyroxine 150 mcg tablet 150 mcg PO DAILY Thyroid 02/04/23 04/25/24
carvedilol 12.5 mg tablet 12.5 mg PO BID Heart 02/05/23 04/25/24
Disease/Condition
insulin aspar prt-insulin aspart 50 sliding scale dose SC BID 10/07/23 04/25/24
100 unit/mL (70-30) subcutaneous Diabetes
soln (Novolog Mix 70-30 U-100
Insuln)
atorvastatin 80 mg tablet (Lipitor) 80 mg PO DAILY high cholesterol 04/25/24 04/25/24
bumetanide 1 mg tablet 1 mg PO DAILY Fluid 04/25/24 04/25/24
Retention/Swelling
clindamycin HCl 300 mg capsule 300 mg PO Q6H infection 04/25/24 04/25/24
glipizide 5 mg tablet, extended 5 mg PO DAILY diabetes 04/25/24 04/25/24
release 24 hr
meclizine 25 mg tablet 25 mg PO BIDPRN PRN dizziness 04/25/24 04/25/24
omeprazole 20 mg tablet,delayed 20 mg PO DAILY Gastrointestinal 04/25/24 04/25/24
release Issue
Review of Systems
-
A 12 point ROS was completed and negative except as noted: Yes
Physical Exam
Vital Signs
Vital Signs
Temp Pulse Resp BP Pulse Ox
102.1 F H 86 22 134/60 95
04/25/24 08:00 04/25/24 09:30 04/25/24 09:30 04/25/24 09:00 04/25/24 09:30
Physical Exam
General: No Apparent Distress and Other (Appears to not feel well)
HEENT: NormoCephalic, Anicteric and Moist mucous membranes
Respiratory: Clear
Cardiac: S1/S2 and Regular Rhythm
GI: Soft, Non Tender and Non Distended
Musculoskeletal: Edema, Left Lower Extremity and Edema, Right Lower Extremity
Skin: Other (Wounds on bilateral lower extremity)
Neuro: Awake
Psych: Calm
Laboratory Results
-
04/25/24 08:55
04/25/24 08:55
Laboratory Results
Lactic Acid 1.7 mmol/L (0.7-2.0) 04/25/24 08:55
Total Bilirubin 0.9 mg/dl (0.2-1.3) 04/25/24 08:55
AST 14 U/L (14-36) 04/25/24 08:55
ALT < 10 U/L (0-35) 04/25/24 08:55
Alkaline Phosphatase 105 U/L (38-126) 04/25/24 08:55
Impression/Plan
-
HPI: 78-year-old female with a past medical history of stage IIIb chronic kidney disease, CHF, hypertension, type 2 diabetes, hypothyroidism, and coronary artery disease presents with a 1 week history of cough and weakness. Patient's spouse reports
that patient has been having worsening weakness and cough. She usually can use a cane, or wheelchair with going far distances. However, her weakness has progressively worsened in the last 1 to 2 days, so brought her to the emergency room.
She was found to be febrile, and be COVID-positive. She also has a probable urinary tract infection. There is erythema in her abdominal folds and groin region. She was hypoxic, satting 87% on room air.
#Acute hypoxic respiratory insufficiency
#Acute coronavirus infection
Patient has been vaccinated and has received her boosters
Chest x-ray shows low lung volumes
Treat with IV dexamethasone D1, Mucinex, supportive care
Wean oxygen as tolerated, patient wears 2 L at night as needed
#Sepsis, present upon admission
#Acute urinary tract infection
#Intertrigo
Treat with Rocephin, follow-up on urine cultures
Desenex powder to abdominal folds and groin
#Chronic heart failure
Continue home Bumex
#Chronic bilateral lower extremity wounds
#Chronic bilateral lower extremity edema
Wound care
#Type 2 diabetes
Check hemoglobin A1c, continue glipizide, NovoLog Mix 70�30
Expect hyperglycemia secondary to steroids
#Stage IIIb chronic kidney disease
Creatinine near baseline, monitor
#Hyponatremia
Monitor
#Hypothyroidism
Continue levothyroxine
#Gastroesophageal reflux disease
Continue PPI
#Anxiety/depression
Continue SSRI
DVT prophylaxis�Lovenox
Full code
Total time spent to see the patient on the floor, examine the patient, review data and lab results, discuss treatment plan with patient, nursing staff around 80 minutes.
--- NOTE | 2024-04-25 12:39 | EDRN ---
Patient taken to room 2128 on stretcher by machine shop repair technician. with patient. Told that the patient's necklace and watch were in a specimen cup in the patient belonging bag.
[2024-04-25 12:41] LABS: Glucose - Point of Care 300 mg/dl (70-99)
[2024-04-25] MEDS: NOVOLOG FLEXPEN-MODERATE RESISTANCE 7 UNITS SC (13:21)
[2024-04-25] MEDS: COREG 12.5 MG PO ×2 (13:22→20:14)
[2024-04-25] MEDS: LEXAPRO 20 MG PO (13:22)
[2024-04-25] MEDS: BUMEX 1 MG PO (13:22)
[2024-04-25] MEDS: MUCINEX 1200 MG PO ×2 (13:22→20:23)
[2024-04-25] MEDS: DESENEX/MITRAZOL/ZEASORB 1 APPLIC TOPICAL (13:23)
[2024-04-25] MEDS: GLUCOTROL XL (EXTENDED RELEASE) 5 MG PO (13:23)
--- NOTE | 2024-04-25 15:07 | PTCARENOTE ---
Received patient from ED into room 2128. Patient AAOx2, disoriented to time. VSS, 91% on 2L O2, patient's at bedside states patient typically wears 2L HS and PRN at home but came into hospital d/t feeling 'weak and congested.' Patient with
stage 2 pressure sores on B/L buttocks, foams placed on wounds. B/L LEs warm and red with small weeping areas; adaptic, ABD pads, and kerlix wrap applied to both legs. Wound care consult in place. Patient c/o pain when touching legs and turning in
bed, screaming out with light touch and requesting 's assistance to turn. Patient turned in bed with pillow, fresh linens placed underneath patient. Patient and state she is incontinent of both bowel and bladder, purewick removed and
brief placed on patient. Patient assisted into chair with x2 assist RW by this RN and PT Laura. Patient's states patient sits up in chair at home with attends on while is at work during the day and does not get up until he is home.
Case management made aware. Patient oriented to room and call lipscomb, lunch ordered for patient, blood sugar 300 and patient administered mealtime insulin - see OCT.
[2024-04-25 17:59] LABS: Glucose - Point of Care 469 mg/dl (70-99)
[2024-04-25] MEDS: LOVENOX 40 MG SC (18:05)
[2024-04-25 18:40] LABS: Glucose 490 mg/dl (70-99)
[2024-04-25] MEDS: NOVOLOG FLEXPEN-MODERATE RESISTANCE 11 UNITS SC (18:41)
[2024-04-25] MEDS: NOVOLOG MIX 70/30 FLEXPEN 50 UNITS SC (18:42)
--- NOTE | 2024-04-25 19:49 | PTCARENOTE ---
Patient RRHI result on glucometer for dinner, stat glucose obtained 490, patient administered 11 units per sliding scale - see OCT. made aware of stat glucose results. Patient with scheduled 70/30 novolog 50 units. This RN communicated with
pharmacy and patient's to clarify correct dose of 70/30 novolog; confirmed patient takes 50 units 70/30 novolog BID. Medication administered - see OCT.
[2024-04-25 21:09] LABS: Glucose - Point of Care 495 mg/dl (70-99)
[2024-04-25] MEDS: DESENEX/MITRAZOL/ZEASORB TOPICAL (21:47)
[2024-04-25 22:02] LABS: Glucose 477 mg/dl (70-99)
[2024-04-25] MEDS: NOVOLOG FLEXPEN 10 UNITS SC (22:26)
--- NOTE | 2024-04-25 23:48 | PTCARENOTE ---
2100 POC glucose-495, stat glucose sent-477. HEAD OF MARKETING ADOMETRY notified, 10units Aspart given at 2226. will recheck glucose at 0030.
[2024-04-26 00:46] LABS: Glucose - Point of Care 305 mg/dl (70-99)
[2024-04-26] MEDS: SYNTHROID 150 MCG PO (05:11)
[2024-04-26 06:00] VITALS: BMI 50.5
--- NOTE | 2024-04-26 06:04 | PTCARENOTE ---
patient's right midline cath found in the bed. Questioned patient as to what happen, pt states she does not know. IV team paged for new placement
[2024-04-26 06:10] LABS: Glucose - Point of Care 201 mg/dl (70-99)
--- NOTE | 2024-04-26 08:24 | W.PN.HOSP.TC ---
Addendum entered and electronically signed by Den Alvarez MD 04/26/24 14:32:
Patient is in need of a hospital bed. Patient has a medical condition which requires positioning of the body in ways not feasible with an ordinary bed.
Length of need 99 months.
Diagnosis: Morbid obesity, stage II pressure ulcer, ambulatory dysfunction
Original Note:
Today's Communication/Plan
-
see bold
Assessment / Plan
Assessment / Plan
HPI: 78-year-old female with a past medical history of stage IIIb chronic kidney disease, CHF, hypertension, type 2 diabetes, hypothyroidism, and coronary artery disease presents with a 1 week history of cough and weakness. Patient's spouse reports
that patient has been having worsening weakness and cough. She usually can use a cane, or wheelchair with going far distances. However, her weakness has progressively worsened in the last 1 to 2 days, so brought her to the emergency room.
She was found to be febrile, and be COVID-positive. She also has a probable urinary tract infection. There is erythema in her abdominal folds and groin region. She was hypoxic, satting 87% on room air.
#Acute hypoxic respiratory insufficiency
#Acute coronavirus infection
Patient has been vaccinated and has received her boosters
Chest x-ray shows low lung volumes
Treat with IV dexamethasone D2, Mucinex, supportive care
Wean oxygen as tolerated, patient wears 2 L at night as needed
#Sepsis, present upon admission
#Acute urinary tract infection
#Intertrigo
Treat with Rocephin D2, follow-up on urine cultures
1 blood culture growing gram-positive cocci - f/u, repeat blood cultures today
Desenex powder to abdominal folds and groin
#Chronic heart failure
Continue home Bumex
#Chronic bilateral lower extremity wounds
#Chronic bilateral lower extremity edema
Wound care
Check lower extremity Dopplers
#Type 2 diabetes
A1c 7.2, continue glipizide, NovoLog Mix 70�30
Expect hyperglycemia secondary to steroids
#Stage IIIb chronic kidney disease
Creatinine near baseline, monitor
#Hyponatremia
Monitor
#Hypothyroidism
Continue levothyroxine
#Gastroesophageal reflux disease
Continue PPI
#Anxiety/depression
Continue SSRI
DVT prophylaxis�Lovenox
Full code
Dispo - PT rec SNF
Total time spent to see the patient on the floor, examine the patient, review data and lab results, discuss treatment plan with patient, nursing staff around 52 minutes.
Physical Exam
General: Appears debilitated, morbidly obese, no acute distress
HEENT: Normocephalic, Atraumatic, EOMI, MMM
Respiratory: Diminished breath sounds at the bases
Cardiac: Normal S1/S2, Regular Rate and Rhythm
GI: Soft, Nontender, Nondistended, Normal Bowel Sounds
Extremities: No Clubbing, Cyanosis
Severe bilateral lower extremity edema with scattered skin wounds
Neuro: Nonfocal/Grossly Intact
Psych: Calm, Cooperative
Derm: Erythema to groin and abdominal folds
Anticipated Discharge: > 48 hours
Subjective/Interval History
-
Date of Service: April 26, 2024
Patient reports feeling better. Her breathing is improved. She continues to be weak, and have a cough. Fever resolved. No vomiting.
Objective Data
-
Labs:
Laboratory Results
04/25/24
21:42
Glucose 477 H*
Vital Signs:
Vital Signs
Temp Pulse Resp BP Pulse Ox
98.2 F 81 21 148/70 98
04/25/24 23:28 04/25/24 23:28 04/25/24 23:28 04/25/24 23:28 04/25/24 23:28
I&O
04/25/24 04/26/24 04/27/24
06:59 06:59 06:59
Intake Total 720 / 720
Balance 720 / 720
[2024-04-26 09:12] VITALS: BP 156/74
[2024-04-26 09:12] LABS: Glucose - Point of Care 204 mg/dl (70-99)
[2024-04-26] MEDS: ROCEPHIN 1000 MG IV (09:14)
[2024-04-26] MEDS: DECADRON 6 MG IV (09:15)
[2024-04-26] MEDS: STERILE WATER FOR INJECTION 10 ML IV (09:15)
[2024-04-26] MEDS: GLUCOTROL XL (EXTENDED RELEASE) 5 MG PO (09:25)
[2024-04-26] MEDS: COREG 12.5 MG PO ×2 (09:25→21:04)
[2024-04-26] MEDS: BUMEX 1 MG PO (09:25)
[2024-04-26] MEDS: PROTONIX 40 MG PO (09:26)
[2024-04-26] MEDS: MUCINEX 1200 MG PO ×2 (09:26→20:57)
[2024-04-26] MEDS: LIPITOR 80 MG PO (09:26)
[2024-04-26] MEDS: LEXAPRO 20 MG PO (09:26)
[2024-04-26] MEDS: NOVOLOG MIX 70/30 FLEXPEN 50 UNITS SC ×2 (09:26→17:50)
[2024-04-26] MEDS: NOVOLOG FLEXPEN-MODERATE RESISTANCE 3 UNITS SC ×2 (09:26→13:34)
[2024-04-26 09:27] LABS: Glycohemoglobin (HgbA1c) 7.2 % (4.0-5.6)
[2024-04-26] MEDS: DESENEX/MITRAZOL/ZEASORB 1 APPLIC TOPICAL ×2 (09:35→21:05)
[2024-04-26 09:55] VITALS: O2SAT 98
--- NOTE | 2024-04-26 10:44 | WOUNDNOTE ---
L FOOT/CALF (ANTERIOR LATERAL)
--- NOTE | 2024-04-26 10:47 | WOUNDNOTE ---
WO RN note: Patient admitted with Covid, UTI. Patient lives with spouse who works. She spends the day in her recliner chair. She stated when she feels well, she can stand up herself at home. She uses a walker. She is not current with VN. Plan is
possible SNF rehab transfer when discharged.
See H&P for complete history.
PMH: CKD3b, HTN, DM, PAD, PTCA with stent, former smoker, CHF.
Wound Location and type/assessment: Patient admitted with: Multiple dermal ulcer/scabs on le's r/t venous edema and her scratching. She denies itchy skin. R arm small scattered dermal ulcer from her scratching. She c/o chronic Le pain.
present who stated she's had chronic LE edema with pain for many years and she scratches skin on her legs all the time. He applied antibiotic ointment, adaptic, gauze bandages and also has tried Vincent wraps and stockinets. Also admitted with multiple
stage 2 sacral/buttocks pressure injuries, R buttocks discolored dull red with couple purple ulcers (suspect will be stage 2 more so than DTI).
Appetite: good.
Pressure redistribution devices in place: Waffle air overlay. Air chair cushion. stated she has a gel chair cushion and air chair cushions at home. She sleeps in bed at night.
Plan: Dressings changed Le's. Le's elevated in recliner chair. Instructed patient pressure injury prevention measures.
Will confirm orders with Dr. Alvarez and discussed with RN Kristyn who assisted with standing patient with walker during buttocks skin assessment.
Care plan to be updated and will follow as needed.
Note to case management of equipment requested for discharge: VN if goes home. Spoke with CLIFF Lamb.
Recommend follow up at wound care center upon discharge.
--- NOTE | 2024-04-26 11:01 | WOUNDNOTE ---
WOC RN note: t/c Spoke with CLIFF Lamb re: recommend air mattress at SNF, if going home, hospital bed with oren air mattress overlay if patient willing to have a hospital bed. Patient have multiple stage 2 sacral/buttocks pressure injuries.
[2024-04-26 12:13] LABS: Glucose - Point of Care 226 mg/dl (70-99)
[2024-04-26 14:22] VITALS: BMI 50.5
[2024-04-26 15:00] VITALS: BP 159/75
--- NOTE | 2024-04-26 15:37 | CM ---
Patient seen at bedside. IA completed.
Case Consult for Advance Directives completed.
Discussed role of piano case and bench assembler
Dx: COVID, UTI
PMH: chronic le wounds, CKD st 3, CHF, IDDM, hypothyroid, CAD, obese
Patient lives at home with her in 1 story home. 0 steps to enter.
PLOF: Independent uses a walker, w/c long distance
DME at home: cane, wheelchair, recliner lift chair, walker, handicapped bathroom with shower chair, grab bars, pulse oximetry, b/p cuff
Denies any housing/utilities/food/transportation insecurities.
PT recommending SNF - patient declining at this point for SNF, but agreeable to home health with [facility] as she has had them in the past. Referral to [facility] placed in care port.
states after home health discharged he continued with performing her wound care.
states he works 2-10pm, but now 4-12pm. Discussed additional care at home, pamphlets given for [facility] & [facility].
Also discussed recommendation from [facility] for hospital bed at home with [facility]. CM to follow up if they are & will send clinicals to [facility].
PCP: [facility]
PLAN: Discharge when medically stable. Home Health unless changes her mind to go to SNF.
[2024-04-26 17:44] LABS: Glucose - Point of Care 368 mg/dl (70-99)
[2024-04-26] MEDS: LOVENOX 40 MG SC (17:44)
[2024-04-26] MEDS: NOVOLOG FLEXPEN-MODERATE RESISTANCE 9 UNITS SC (17:49)
--- NOTE | 2024-04-26 18:30 | PTCARENOTE ---
Patient agitated and anxious with care throughout shift, yelling out and cursing at staff when being turned and repositioned in bed. Patient x2 assist OOB to chair, tolerated time OOB throughout shift. Patient heavily incontinent with stage 2 B/L
buttocks pressure wounds and MASD to groin/breast folds, agitated and uncooperative with hygiene and turning at times. Wound care orders maintained, patient's B/L LEs wrapped in kerlix per caustic liquor maker, B/L ang wraps applied to B/L LEs per MD order
by this RN. Desenex applied to abdominal and breast folds, foams in place on B/L buttocks.
[2024-04-26 21:54] LABS: Glucose - Point of Care 362 mg/dl (70-99)
[2024-04-26] MEDS: NOVOLOG FLEXPEN 9 UNITS SC (22:16)
[2024-04-26 23:00] VITALS: BP 171/74
[2024-04-26 23:09] VITALS: BP 171/74
[2024-04-26 23:10] VITALS: BP 163/71
[2024-04-27] MEDS: ROXICODONE 5 MG PO ×4 (02:56→20:50)
[2024-04-27] MEDS: SYNTHROID 150 MCG PO (04:51)
[2024-04-27 04:56] VITALS: BMI 50.2
[2024-04-27 06:24] LABS: Hematocrit 31.4 % (37.0-47.0); Hemoglobin 10.1 g/dL (12.0-16.0); Mean Corp Hgb Conc. 32.2 g/dL (33.0-37.0); Mean Corpuscular Hgb 25.3 pg (27.0-31.0); Mean Corpuscular Volume 78.7 fL (81.0-99.0); Mean Platelet Volume 10.8 fL (7.4-10.4); Platelet Count 193 10^3/uL (130-400); Red Blood Cell Count 3.99 10^6/uL (4.20-5.40); Red Cell Dist. Width 18.6 % (11.5-14.5); White Blood Cell Count 10.4 10^3/uL (4.8-10.8)
[2024-04-27 06:46] LABS: Blood Urea Nitrogen 44 mg/dl (7-17); Calcium 8.4 mg/dl (8.4-10.2); Carbon Dioxide 25 mmol/L (22-30); Chloride 99 mmol/L (98-107); Estimated Creatinine Clearance 36 ml/min; Glucose 114 mg/dl (70-99); Potassium 4.8 mmol/L (3.5-5.1); Sodium 137 mmol/L (135-145); eGFR 28.84
[2024-04-27 07:07] VITALS: BP 162/79
[2024-04-27 07:55] LABS: Glucose - Point of Care 90 mg/dl (70-99)
[2024-04-27] MEDS: NOVOLOG FLEXPEN-MODERATE RESISTANCE SC (07:55)
--- NOTE | 2024-04-27 08:10 | PN.CDI ---
CDI
- -
CDI:
Physician Documentation Request
Admit Date: 04/25/24 11:09
Dear Doctor Do,
Patient admitted for sepsis.
10/09 Cardiology progress note previous admission: 'chronic heart failure reduced EF...Echo with EF of 35 to 40%'
04/25 Pro-BNP: [id number]
04/25 CXR: 'Pulmonary vascularity mildly increased at least in part may be due to low lung volumes. Cannot exclude pulmonary edema.'
04/26 Hospitalist PN: 'Chronic heart failure'
Please provide further specificity regarding the most likely type of CHF you are evaluating, treating or monitoring.
Chronic
Acute
Other
Use of terms such as suspected, likely, concern for, or probable (associated with a specific diagnosis that is being evaluated, monitored, or treated as if it exists) are acceptable and can be coded in the inpatient setting, when documented at the
time of discharge.
Thank you,
Monica Traylor RN, BSN
CDI Specialist
Available via [place] text
Please use your independent medical judgment in providing your response.
--- NOTE | 2024-04-27 08:16 | PN.CDI ---
CDI
- -
CDI:
Physician Documentation Request
Admit Date: 04/25/24 11:09
Dear Doctor Do,
Patient admitted for sepsis.
10/09 Cardiology progress note previous admission: 'chronic heart failure reduced EF...Echo with EF of 35 to 40%'
04/26 Hospitalist PN: 'Chronic heart failure'
Please provide further specificity regarding the most likely type of CHF you are evaluating, treating or monitoring.
Systolic
Other
Use of terms such as suspected, likely, concern for, or probable (associated with a specific diagnosis that is being evaluated, monitored, or treated as if it exists) are acceptable and can be coded in the inpatient setting, when documented at the
time of discharge.
Thank you,
Monica Traylor RN, BSN
CDI Specialist
Available via [place] text
Please use your independent medical judgment in providing your response.
--- NOTE | 2024-04-27 08:48 | W.PN.HOSP.TC ---
Today's Communication/Plan
-
see bold
Assessment / Plan
Assessment / Plan
HPI: 78-year-old female with a past medical history of stage IIIb chronic kidney disease, CHF, hypertension, type 2 diabetes, hypothyroidism, and coronary artery disease presents with a 1 week history of cough and weakness. Patient's spouse reports
that patient has been having worsening weakness and cough. She usually can use a cane, or wheelchair with going far distances. However, her weakness has progressively worsened in the last 1 to 2 days, so brought her to the emergency room.
She was found to be febrile, and be COVID-positive. She also has a probable urinary tract infection. There is erythema in her abdominal folds and groin region. She was hypoxic, satting 87% on room air.
#Acute hypoxic respiratory insufficiency
#Acute coronavirus infection
Patient has been vaccinated and has received her boosters
Chest x-ray shows low lung volumes
Treat with IV dexamethasone D3, Mucinex, supportive care
Currently on 2 L, wean oxygen as tolerated, patient wears 2 L at night as needed
#Sepsis, present upon admission
#Acute E. Coli urinary tract infection
#Group B strep bacteremia
#Intertrigo
Treat with Rocephin D3, urine cultures growing E. coli, sensitive to Ancef
Blood cultures growing group B strep, also sensitive to Ancef
Desenex powder to abdominal folds and groin
#Chronic systolic heart failure
Continue home Bumex
#Chronic bilateral lower extremity wounds
#Chronic bilateral lower extremity edema
Lower extremity Dopplers negative for DVT
Wound care
#Type 2 diabetes
A1c 7.2, continue glipizide, NovoLog Mix 70�30
Expect hyperglycemia secondary to steroids
#Stage IIIb chronic kidney disease
Creatinine at baseline at 1.8, monitor
#Hyponatremia
Monitor
#Hypothyroidism
Continue levothyroxine
#Gastroesophageal reflux disease
Continue PPI
#Anxiety/depression
Continue SSRI
DVT prophylaxis�Lovenox
Full code
Dispo - PT rec SNF, wants to take patient home
Updated on phone 04/27
Total time spent to see the patient on the floor, examine the patient, review data and lab results, discuss treatment plan with patient, nursing staff around 52 minutes.
Physical Exam
General: Appears debilitated, morbidly obese, no acute distress
HEENT: Normocephalic, Atraumatic, EOMI, MMM
Respiratory: Diminished breath sounds at the bases
Cardiac: Normal S1/S2, Regular Rate and Rhythm
GI: Soft, Nontender, Nondistended, Normal Bowel Sounds
Extremities: No Clubbing, Cyanosis
Severe bilateral lower extremity edema with scattered skin wounds
Neuro: Nonfocal/Grossly Intact
Psych: Calm, Cooperative
Derm: Erythema to groin and abdominal folds
Anticipated Discharge: 24 - 48 hours
Subjective/Interval History
-
Date of Service: April 27, 2024
Objective Data
-
Labs:
Laboratory Results
04/27/24
05:19
WBC 10.4
Hgb 10.1 L
Hct 31.4 L
Plt Count 193
Sodium 137
Potassium 4.8
Chloride 99
Carbon Dioxide 25
BUN 44 H
Creatinine 1.8 H
Glucose 114 H
Calcium 8.4
Vital Signs:
Vital Signs
Temp Pulse Resp BP Pulse Ox
97.7 F 107 12 162/79 98
04/27/24 07:07 04/27/24 07:07 04/27/24 07:07 04/27/24 07:07 04/27/24 07:07
I&O
04/26/24 04/27/24 04/28/24
06:59 06:59 06:59
Intake Total 720 / 720 1530 / 1530
Balance 720 / 720 1530 / 1530
[2024-04-27] MEDS: MUCINEX 1200 MG PO ×2 (08:55→20:30)
[2024-04-27] MEDS: GLUCOTROL XL (EXTENDED RELEASE) 5 MG PO (08:55)
[2024-04-27] MEDS: PROTONIX 40 MG PO (08:55)
[2024-04-27] MEDS: LEXAPRO 20 MG PO (08:55)
[2024-04-27] MEDS: LIPITOR 80 MG PO (08:55)
[2024-04-27] MEDS: COREG 12.5 MG PO ×2 (08:56→20:31)
[2024-04-27] MEDS: DESENEX/MITRAZOL/ZEASORB 1 APPLIC TOPICAL ×2 (08:56→20:31)
[2024-04-27] MEDS: BUMEX 1 MG PO (08:56)
[2024-04-27] MEDS: BACTROBAN 2% OINTMENT 1 APPLIC TOPICAL (08:57)
[2024-04-27] MEDS: HYDROPHOR 1 APPLIC TOPICAL (08:57)
[2024-04-27] MEDS: NOVOLOG MIX 70/30 FLEXPEN 50 UNITS SC ×2 (08:58→17:43)
[2024-04-27] MEDS: STERILE WATER FOR INJECTION 10 ML IV (09:02)
[2024-04-27] MEDS: ROCEPHIN 1000 MG IV (09:08)
[2024-04-27] MEDS: DECADRON 6 MG IV (09:09)
--- NOTE | 2024-04-27 10:19 | CM ---
Patient seen at bedside. Seen by Dr. Alvarez
Patient Agreeable to hospital bed with KHOI mattress as recommended by [facility].
Faxed clinicals to [facility] from [facility] ([phone]). Confirmation received.
[facility] accepted patient (in [facility]). RN/PT/OT/LINING MAKER/SW
PLAN: Discharge to home when stable with [facility]
Fax #: [phone]
[2024-04-27 11:49] LABS: Glucose - Point of Care 155 mg/dl (70-99)
[2024-04-27] MEDS: NOVOLOG FLEXPEN-MODERATE RESISTANCE 1 UNITS SC (13:01)
--- NOTE | 2024-04-27 14:52 | CM ---
Patient seen at bedside.
Spoke with patient/-hospital bed/KHOI mattress form faxed to [facility] at [facility]-[phone].
[facility] referral in [facility]. They will accept.
Clinicals updated in [facility].
Ambulance forms on chart. Discussed ambulance transport with patient & agreeable.
PLAN: Discharge when medically stable to home with [facility].
Ambulance to transport
[facility]
Fax #: [phone]
[2024-04-27 15:30] VITALS: BP 150/62
[2024-04-27] MEDS: TESSALON PERLES 100 MG PO (16:04)
[2024-04-27 17:25] LABS: Glucose - Point of Care 237 mg/dl (70-99)
[2024-04-27] MEDS: NOVOLOG FLEXPEN-MODERATE RESISTANCE 3 UNITS SC (17:43)
[2024-04-27] MEDS: LOVENOX 40 MG SC (17:45)
[2024-04-27 22:12] LABS: Glucose - Point of Care 247 mg/dl (70-99)
[2024-04-27 23:16] VITALS: BP 159/86
--- NOTE | 2024-04-28 00:11 | PTCARENOTE ---
Patient called spouse c/o chills, spouse requested that we check BSG- result 255. Vitals- afebrile, HR 79, BP 167/73, pox 97% 2LNC. Will continue to monitor.
[2024-04-28 00:12] VITALS: BP 167/73
[2024-04-28 00:19] LABS: Glucose - Point of Care 255 mg/dl (70-99)
[2024-04-28 05:44] VITALS: BMI 50.5
[2024-04-28] MEDS: SYNTHROID 150 MCG PO (06:06)
[2024-04-28 07:15] VITALS: BP 172/75
[2024-04-28 08:27] LABS: Glucose - Point of Care 95 mg/dl (70-99)
--- NOTE | 2024-04-28 08:51 | W.PN.HOSP.TC ---
Today's Communication/Plan
-
see bold
Assessment / Plan
Assessment / Plan
HPI: 78-year-old female with a past medical history of stage IIIb chronic kidney disease, CHF, hypertension, type 2 diabetes, hypothyroidism, and coronary artery disease presents with a 1 week history of cough and weakness. Patient's spouse reports
that patient has been having worsening weakness and cough. She usually can use a cane, or wheelchair with going far distances. However, her weakness has progressively worsened in the last 1 to 2 days, so brought her to the emergency room.
She was found to be febrile, and be COVID-positive. She also has a probable urinary tract infection. There is erythema in her abdominal folds and groin region. She was hypoxic, satting 87% on room air.
#Acute hypoxic respiratory insufficiency
#Acute coronavirus infection
Patient has been vaccinated and has received her boosters
Chest x-ray shows low lung volumes
Patient currently satting 99% on 2 L, likely can come off of oxygen. Patient wears 2 L at night as needed
Status post 4 days of dexamethasone, will discontinue
Continue Mucinex, supportive care
Isolate through 05/04
#Sepsis, present upon admission
#Acute E. Coli urinary tract infection
#Group B strep bacteremia
#Intertrigo
Treat with Rocephin D4, urine cultures growing E. coli, sensitive to Ancef
Blood cultures growing group B strep, also sensitive to Ancef
Desenex powder to abdominal folds and groin
#Chronic systolic heart failure
Continue home Bumex
#Chronic bilateral lower extremity wounds
#Chronic bilateral lower extremity edema
Lower extremity Dopplers negative for DVT
Wound care
#Type 2 diabetes
A1c 7.2, continue glipizide, NovoLog Mix 70�30
Expect hyperglycemia secondary to steroids
#Stage IIIb chronic kidney disease
Creatinine at baseline at 1.8, monitor
#Hyponatremia
Monitor
#Hypothyroidism
Continue levothyroxine
#Gastroesophageal reflux disease
Continue PPI
#Anxiety/depression
Continue SSRI
DVT prophylaxis�Lovenox
Full code
Dispo - PT rec SNF, wants to take patient home
Updated on phone 04/27
Total time spent to see the patient on the floor, examine the patient, review data and lab results, discuss treatment plan with patient, nursing staff around 50 minutes.
Physical Exam
General: Appears debilitated, morbidly obese, no acute distress
HEENT: Normocephalic, Atraumatic, EOMI, MMM
Respiratory: Diminished breath sounds at the bases
Cardiac: Normal S1/S2, Regular Rate and Rhythm
GI: Soft, Nontender, Nondistended, Normal Bowel Sounds
Extremities: No Clubbing, Cyanosis
Severe bilateral lower extremity edema with scattered skin wounds
Neuro: Nonfocal/Grossly Intact
Psych: Calm, Cooperative
Derm: Erythema to groin and abdominal folds
Anticipated Discharge: 24 - 48 hours
Subjective/Interval History
-
Date of Service: April 28, 2024
Shortness of breath resolved. Cough improved. Complains of groin and buttock pain. No fever, no vomiting.
Objective Data
-
Vital Signs:
Vital Signs
Temp Pulse Resp BP Pulse Ox
98 F 68 20 167/73 97
04/28/24 00:12 04/28/24 00:12 04/28/24 00:12 04/28/24 00:12 04/28/24 00:12
I&O
04/27/24 04/28/24 04/29/24
06:59 06:59 06:59
Intake Total 1530 / 1530 1310 / 1310
Balance 1530 / 1530 1310 / 1310
[2024-04-28] MEDS: LEXAPRO 20 MG PO (09:08)
[2024-04-28] MEDS: BUMEX 1 MG PO (09:08)
[2024-04-28] MEDS: COREG 12.5 MG PO ×2 (09:08→20:25)
[2024-04-28] MEDS: NOVOLOG FLEXPEN-MODERATE RESISTANCE SC ×2 (09:09→12:59)
[2024-04-28] MEDS: PROTONIX 40 MG PO (09:09)
[2024-04-28] MEDS: BACTROBAN 2% OINTMENT 1 APPLIC TOPICAL (09:09)
[2024-04-28] MEDS: LIPITOR 80 MG PO (09:09)
[2024-04-28] MEDS: MUCINEX 1200 MG PO ×2 (09:09→20:27)
[2024-04-28] MEDS: GLUCOTROL XL (EXTENDED RELEASE) 5 MG PO (09:09)
[2024-04-28] MEDS: DESENEX/MITRAZOL/ZEASORB 1 APPLIC TOPICAL ×2 (09:10→20:27)
[2024-04-28] MEDS: HYDROPHOR 1 APPLIC TOPICAL (09:10)
[2024-04-28] MEDS: NOVOLOG MIX 70/30 FLEXPEN 50 UNITS SC (09:10)
[2024-04-28] MEDS: STERILE WATER FOR INJECTION 10 ML IV (09:13)
[2024-04-28] MEDS: ROCEPHIN 1000 MG IV (09:13)
[2024-04-28] MEDS: DECADRON 6 MG IV (09:13)
[2024-04-28 12:58] LABS: Glucose - Point of Care 107 mg/dl (70-99)
[2024-04-28 14:10] VITALS: BP 181/73; PULSE 70
--- NOTE | 2024-04-28 14:58 | CM ---
Spoke with regarding hospital bed/mattress that was recommended by [facility]. I et him know that it was faxed to [facility] & confirmation received. Gave [facility] #[phone]
He stated he also bought an air mattress for her recliner.
Also discussed if he would like [facility] called to see if they quality for services.
Agreeable and CM called and spoke to Gerald ([phone]) who will call them.
[facility] referral in care port & will accept patient. Updated clinicals sent.
Spoke to regarding ambulance transport.
PLAN: Discharge tentative 04/28 to home with [facility]
Ambulance to transport. Forms on chart.
[facility]
Fax #: [phone]
[2024-04-28 15:45] VITALS: BP 169/90
[2024-04-28] MEDS: LOVENOX 40 MG SC (17:20)
[2024-04-28] MEDS: NOVOLOG MIX 70/30 FLEXPEN 40 UNITS SC (17:21)
[2024-04-28 17:35] LABS: Glucose - Point of Care 162 mg/dl (70-99)
[2024-04-28] MEDS: NOVOLOG FLEXPEN-MODERATE RESISTANCE 1 UNITS SC (17:50)
[2024-04-28 21:41] LABS: Glucose - Point of Care 232 mg/dl (70-99)
[2024-04-28 23:57] VITALS: BP 166/83
[2024-04-29 06:00] VITALS: BMI 49.8
[2024-04-29] MEDS: SYNTHROID 150 MCG PO (06:31)
[2024-04-29 07:54] LABS: Mean Corp Hgb Conc. 32.4 g/dL (33.0-37.0); Mean Corpuscular Hgb 25.2 pg (27.0-31.0); Mean Corpuscular Volume 77.8 fL (81.0-99.0); Mean Platelet Volume 10.8 fL (7.4-10.4); Platelet Count 221 10^3/uL (130-400); Red Blood Cell Count 4.37 10^6/uL (4.20-5.40); Red Cell Dist. Width 18.1 % (11.5-14.5); White Blood Cell Count 7.5 10^3/uL (4.8-10.8)
[2024-04-29 08:30] LABS: Blood Urea Nitrogen 55 mg/dl (7-17); Calcium 8.6 mg/dl (8.4-10.2); Carbon Dioxide 27 mmol/L (22-30); Chloride 100 mmol/L (98-107); Estimated Creatinine Clearance 43 ml/min; Glucose 53 mg/dl (70-99); Magnesium 2.1 mg/dl (1.6-2.3); Phosphorus 3.3 mg/dl (2.5-4.5); Sodium 139 mmol/L (135-145); eGFR 35.89
[2024-04-29 08:53] LABS: Glucose - Point of Care 61 mg/dl (70-99)
[2024-04-29] MEDS: NOVOLOG MIX 70/30 FLEXPEN SC (08:53)
[2024-04-29] MEDS: NOVOLOG FLEXPEN-MODERATE RESISTANCE SC ×3 (08:53→16:42)
[2024-04-29] MEDS: BUMEX 1 MG PO (08:57)
[2024-04-29] MEDS: MUCINEX 1200 MG PO ×2 (08:58→21:36)
[2024-04-29] MEDS: LEXAPRO 20 MG PO (08:59)
[2024-04-29] MEDS: PROTONIX 40 MG PO (08:59)
[2024-04-29] MEDS: COREG PO (08:59)
[2024-04-29] MEDS: HYDROPHOR 1 APPLIC TOPICAL (09:00)
[2024-04-29] MEDS: BACTROBAN 2% OINTMENT 1 APPLIC TOPICAL (09:00)
[2024-04-29] MEDS: DESENEX/MITRAZOL/ZEASORB 1 APPLIC TOPICAL ×2 (09:00→21:37)
[2024-04-29] MEDS: ROCEPHIN 1000 MG IV (09:01)
[2024-04-29] MEDS: LIPITOR 80 MG PO (09:01)
[2024-04-29] MEDS: STERILE WATER FOR INJECTION 10 ML IV (09:01)
[2024-04-29] MEDS: GLUCOTROL XL (EXTENDED RELEASE) PO (09:01)
[2024-04-29 09:10] VITALS: BP 170/70
--- NOTE | 2024-04-29 09:13 | W.PN.HOSP.TC ---
Today's Communication/Plan
-
Decrease insulin
Start hydralazine 75 mg 3 times daily
Check echo
Assessment / Plan
Assessment / Plan
HPI: 78-year-old female with a past medical history of stage IIIb chronic kidney disease, CHF, hypertension, type 2 diabetes, hypothyroidism, and coronary artery disease presents with a 1 week history of cough and weakness. Patient's spouse reports
that patient has been having worsening weakness and cough. She usually can use a cane, or wheelchair with going far distances. However, her weakness has progressively worsened in the last 1 to 2 days, so brought her to the emergency room.
She was found to be febrile, and be COVID-positive. She also has a probable urinary tract infection. There is erythema in her abdominal folds and groin region. She was hypoxic, satting 87% on room air.
#Acute hypoxic respiratory insufficiency
#Acute coronavirus infection
Patient has been vaccinated and has received her boosters
Chest x-ray shows low lung volumes
Patient currently satting 99% on RA, down from 2 L. Patient wears 2 L at night as needed
Status post 4 days of dexamethasone
Continue Mucinex, supportive care
Isolate through 05/04
#Sepsis, present upon admission
#Acute E. Coli urinary tract infection
#Group B strep bacteremia
#Intertrigo
Treat with Rocephin D5, urine cultures growing E. coli, sensitive to Ancef
Blood cultures growing group B strep, also sensitive to Ancef
Repeat blood cultures negative
Check echo for Group B strep bacteremia
Desenex powder to abdominal folds and groin
Keep groin and sacrum dry
#Chronic systolic heart failure
Continue home Bumex
#Chronic bilateral lower extremity wounds
#Chronic bilateral lower extremity edema
Lower extremity Dopplers negative for DVT
Wound care
#Type 2 diabetes
A1c 7.2, continue glipizide, decrease NovoLog Mix 70�30 due to hypoglycemia
#Essential hypertension
Continue Bumex, continue Coreg with hold parameter
Add hydralazine 75 mg 3 times a day
#Stage IIIb chronic kidney disease
Creatinine at baseline at 1.8, monitor
#Hyponatremia
Monitor
#Hypothyroidism
Continue levothyroxine
#Gastroesophageal reflux disease
Continue PPI
#Anxiety/depression
Continue SSRI
DVT prophylaxis�Lovenox
Full code
Dispo - PT rec SNF, wants to take patient home
Updated on phone 04/29
Total time spent to see the patient on the floor, examine the patient, review data and lab results, discuss treatment plan with patient, nursing staff around 50 minutes.
Physical Exam
General: Appears debilitated, morbidly obese, no acute distress
HEENT: Normocephalic, Atraumatic, EOMI, MMM
Respiratory: Diminished breath sounds at the bases
Cardiac: Normal S1/S2, Regular Rate and Rhythm
GI: Soft, Nontender, Nondistended, Normal Bowel Sounds
Extremities: No Clubbing, Cyanosis
Severe bilateral lower extremity edema with scattered skin wounds
Neuro: Nonfocal/Grossly Intact
Psych: Calm, Cooperative
Derm: Erythema to groin and abdominal folds
Anticipated Discharge: 24 - 48 hours
Subjective/Interval History
-
Date of Service: April 29, 2024
Patient complains of sacral and groin pain. Has a mild cough. No fever, no vomiting.
Objective Data
-
Labs:
Laboratory Results
04/29/24
07:42
WBC 7.5
Hgb 11.0 L
Hct 34.0 L
Plt Count 221
Sodium 139
Potassium 5.0
Chloride 100
Carbon Dioxide 27
BUN 55 H
Creatinine 1.5 H
Glucose 53 L*
Calcium 8.6
Vital Signs:
Vital Signs
Temp Pulse Resp BP Pulse Ox
97.8 F 56 16 170/70 99
04/29/24 09:10 04/29/24 09:10 04/29/24 09:10 04/29/24 09:10 04/29/24 09:10
I&O
04/28/24 04/29/24 04/30/24
06:59 06:59 06:59
Intake Total 1310 / 1310 900 / 900
Output Total 1025 / 1025
Balance 1310 / 1310 -125 / -125
[2024-04-29] MEDS: APRESOLINE 50 MG PO (09:31)
[2024-04-29 09:33] LABS: Glucose - Point of Care 88 mg/dl (70-99)
--- NOTE | 2024-04-29 10:01 | PTCARENOTE ---
Patient with critical blood sugar of 53 on AM labs. Accucheck taken by this RN 61. Patient asymptomatic. 4 oz orange juice given, repeat blood sugar 88, breakfast at bedside. MD made aware of blood sugar results, AM sliding scale insulin and 70/30
held, PO glipizide held per MD - see OCT. Patient's BP 170/70 LUE HR 56, MD made aware, AM coreg held per MD, PO hydralazine ordered per MD and administered by this RN - see OCT.
[2024-04-29 11:40] LABS: Glucose - Point of Care 114 mg/dl (70-99)
[2024-04-29 11:43] VITALS: BP 159/63
[2024-04-29 13:35] LABS: Glucose - Point of Care 133 mg/dl (70-99)
[2024-04-29 15:50] VITALS: BP 165/72
[2024-04-29] MEDS: APRESOLINE 75 MG PO ×2 (16:36→21:36)
[2024-04-29 16:42] LABS: Glucose - Point of Care 95 mg/dl (70-99)
--- NOTE | 2024-04-29 17:22 | PTCARENOTE ---
Patient's dinnertime insulin 95. MD made aware, scheduled novolog 70/30 decreased to 10 units per MD order.
[2024-04-29] MEDS: NOVOLOG MIX 70/30 FLEXPEN 10 UNITS SC (18:12)
[2024-04-29] MEDS: LOVENOX 40 MG SC (18:12)
[2024-04-29 21:30] VITALS: BP 153/63
[2024-04-29] MEDS: COREG 12.5 MG PO (21:37)
[2024-04-29 21:58] LABS: Glucose - Point of Care 154 mg/dl (70-99)
[2024-04-29 23:29] VITALS: BP 174/76
[2024-04-30] MEDS: APRESOLINE 5 MG IV (00:03)
[2024-04-30 02:56] LABS: Glucose - Point of Care 77 mg/dl (70-99)
[2024-04-30 03:00] VITALS: BP 149/56
[2024-04-30] MEDS: SYNTHROID 150 MCG PO (05:15)
[2024-04-30 06:00] VITALS: BMI 49.6
[2024-04-30 07:05] VITALS: BP 147/60
[2024-04-30 08:00] LABS: Glucose - Point of Care 77 mg/dl (70-99)
--- NOTE | 2024-04-30 08:40 | W.PN.HOSP.TC ---
Today's Communication/Plan
-
see bold
Assessment / Plan
Assessment / Plan
HPI: 78-year-old female with a past medical history of stage IIIb chronic kidney disease, CHF, hypertension, type 2 diabetes, hypothyroidism, and coronary artery disease presents with a 1 week history of cough and weakness. Patient's spouse reports
that patient has been having worsening weakness and cough. She usually can use a cane, or wheelchair with going far distances. However, her weakness has progressively worsened in the last 1 to 2 days, so brought her to the emergency room.
She was found to be febrile, and be COVID-positive. She also has a probable urinary tract infection. There is erythema in her abdominal folds and groin region. She was hypoxic, satting 87% on room air.
#Acute hypoxic respiratory insufficiency
#Acute coronavirus infection
Patient has been vaccinated and has received her boosters
Chest x-ray shows low lung volumes
Status post 4 days of dexamethasone, discontinued 04/28 when hypoxia resolved
04/30 Pt hypoxic again, satting 89% on RA, back on 2 L. Patient wears 2 L at night as needed at baseline
Resume IV dexamethasone today, encourage incentive spirometry use
Continue Mucinex, supportive care
Isolate through 05/04
#Sepsis, present upon admission
#Acute E. Coli urinary tract infection
#Group B strep bacteremia
#Intertrigo
Treat with Rocephin D6, urine cultures growing E. coli, sensitive to Ancef
Blood cultures growing group B strep, also sensitive to Ancef
Repeat blood cultures negative
Check echo for Group B strep bacteremia
Desenex powder to abdominal folds and groin
Keep groin and sacrum dry
#Chronic systolic heart failure
Continue home Bumex
#Chronic bilateral lower extremity wounds
#Chronic bilateral lower extremity edema
Lower extremity Dopplers negative for DVT
Wound care
#Type 2 diabetes
A1c 7.2, continue glipizide, increase NovoLog Mix 70�30, give 35 units BID since she is back on steroids
She usually takes 50 units twice daily at home
#Essential hypertension
Continue Bumex, continue Coreg with hold parameter
Added hydralazine 75 mg 3 times a day
#Stage IIIb chronic kidney disease
Creatinine at near baseline, monitor
#Hyponatremia
Monitor
#Hypothyroidism
Continue levothyroxine
#Gastroesophageal reflux disease
Continue PPI
#Anxiety/depression
Continue SSRI
DVT prophylaxis�Lovenox
Full code
Dispo - PT rec SNF, wants to take patient home
Updated on phone 04/29
Total time spent to see the patient on the floor, examine the patient, review data and lab results, discuss treatment plan with patient, nursing staff around 55 minutes.
Physical Exam
General: Appears debilitated, morbidly obese, no acute distress
HEENT: Normocephalic, Atraumatic, EOMI, MMM
Respiratory: Diminished breath sounds at the bases
Cardiac: Normal S1/S2, Regular Rate and Rhythm
GI: Soft, Nontender, Nondistended, Normal Bowel Sounds
Extremities: No Clubbing, Cyanosis
Severe bilateral lower extremity edema with scattered skin wounds
Neuro: Nonfocal/Grossly Intact
Psych: Calm, Cooperative
Derm: Erythema to groin and abdominal folds
Anticipated Discharge: 24 - 48 hours
Subjective/Interval History
-
Date of Service: April 30, 2024
Denies shortness of breath. Cough continues to improve. No fever, no vomiting.
Objective Data
-
Vital Signs:
Vital Signs
Temp Pulse Resp BP Pulse Ox
97.5 F 60 20 147/60 96
04/30/24 07:05 04/30/24 07:05 04/30/24 07:05 04/30/24 07:05 04/30/24 07:05
I&O
04/29/24 04/30/24 05/01/24
06:59 06:59 06:59
Intake Total 900 / 900 1140 / 1140
Output Total 1025 / 1025 350 / 350
Balance -125 / -125 790 / 790
[2024-04-30] MEDS: NOVOLOG FLEXPEN-MODERATE RESISTANCE SC (08:42)
[2024-04-30] MEDS: GLUCOTROL XL (EXTENDED RELEASE) 5 MG PO (08:43)
[2024-04-30] MEDS: MUCINEX 1200 MG PO ×2 (08:43→20:21)
[2024-04-30] MEDS: PROTONIX 40 MG PO (08:43)
[2024-04-30] MEDS: LIPITOR 80 MG PO (08:44)
[2024-04-30] MEDS: LEXAPRO 20 MG PO (08:45)
[2024-04-30] MEDS: COREG PO (08:45)
[2024-04-30] MEDS: APRESOLINE 75 MG PO ×2 (08:45→21:58)
[2024-04-30] MEDS: BUMEX 1 MG PO (08:46)
[2024-04-30] MEDS: DESENEX/MITRAZOL/ZEASORB 1 APPLIC TOPICAL ×2 (08:47→20:47)
[2024-04-30] MEDS: BACTROBAN 2% OINTMENT 1 APPLIC TOPICAL (08:47)
[2024-04-30] MEDS: HYDROPHOR 1 APPLIC TOPICAL (08:50)
[2024-04-30] MEDS: NOVOLOG MIX 70/30 FLEXPEN 10 UNITS SC (08:51)
[2024-04-30] MEDS: ROCEPHIN 2000 MG IV (10:16)
[2024-04-30] MEDS: STERILE WATER FOR INJECTION 20 ML IV (10:16)
[2024-04-30 12:13] LABS: Glucose - Point of Care 153 mg/dl (70-99)
[2024-04-30] MEDS: NOVOLOG FLEXPEN-MODERATE RESISTANCE 1 UNITS SC ×2 (12:31→17:06)
[2024-04-30 15:59] VITALS: BP 122/70
[2024-04-30] MEDS: APRESOLINE PO (16:03)
[2024-04-30 16:46] LABS: Glucose - Point of Care 195 mg/dl (70-99)
[2024-04-30] MEDS: DECADRON 6 MG IV (17:05)
[2024-04-30] MEDS: NOVOLOG MIX 70/30 FLEXPEN 35 UNITS SC (17:06)
[2024-04-30] MEDS: LOVENOX 40 MG SC (17:07)
[2024-04-30] MEDS: TYLENOL 650 MG PO (20:29)
[2024-04-30] MEDS: COREG 12.5 MG PO (20:29)
[2024-04-30] MEDS: ROXICODONE 5 MG PO (22:09)
[2024-04-30] MEDS: TESSALON PERLES 100 MG PO (22:13)
[2024-04-30 22:15] LABS: Glucose - Point of Care 116 mg/dl (70-99)
[2024-04-30 22:49] VITALS: BP 164/66
[2024-04-30 23:30] VITALS: BP 154/66
[2024-05-01] MEDS: SYNTHROID 150 MCG PO (05:22)
[2024-05-01] MEDS: ROXICODONE 5 MG PO (05:25)
[2024-05-01 05:31] VITALS: BMI 48.4
[2024-05-01 07:15] VITALS: BP 148/67
[2024-05-01 07:33] LABS: Glucose - Point of Care 146 mg/dl (70-99)
[2024-05-01 07:46] LABS: Mean Corp Hgb Conc. 32.4 g/dL (33.0-37.0); Mean Corpuscular Hgb 25.4 pg (27.0-31.0); Mean Corpuscular Volume 78.5 fL (81.0-99.0); Mean Platelet Volume 10.4 fL (7.4-10.4); Platelet Count 236 10^3/uL (130-400); Red Blood Cell Count 4.33 10^6/uL (4.20-5.40); Red Cell Dist. Width 17.9 % (11.5-14.5); White Blood Cell Count 7.1 10^3/uL (4.8-10.8)
[2024-05-01] MEDS: PROTONIX 40 MG PO (08:22)
[2024-05-01] MEDS: NOVOLOG FLEXPEN-MODERATE RESISTANCE SC ×2 (08:22→12:06)
[2024-05-01] MEDS: GLUCOTROL XL (EXTENDED RELEASE) 5 MG PO (08:22)
[2024-05-01] MEDS: LEXAPRO 20 MG PO (08:22)
[2024-05-01] MEDS: LIPITOR 80 MG PO (08:23)
[2024-05-01] MEDS: APRESOLINE 75 MG PO ×3 (08:23→21:46)
[2024-05-01] MEDS: MUCINEX 1200 MG PO ×2 (08:23→20:35)
[2024-05-01] MEDS: COREG 12.5 MG PO (08:23)
[2024-05-01] MEDS: BUMEX 1 MG PO (08:23)
[2024-05-01] MEDS: BACTROBAN 2% OINTMENT 1 APPLIC TOPICAL (08:25)
[2024-05-01] MEDS: DESENEX/MITRAZOL/ZEASORB 1 APPLIC TOPICAL ×2 (08:25→20:33)
[2024-05-01] MEDS: HYDROPHOR 1 APPLIC TOPICAL (08:26)
[2024-05-01] MEDS: NOVOLOG MIX 70/30 FLEXPEN 35 UNITS SC ×2 (08:26→17:33)
[2024-05-01 08:29] LABS: Blood Urea Nitrogen 55 mg/dl (7-17); Carbon Dioxide 25 mmol/L (22-30); Chloride 100 mmol/L (98-107); Estimated Creatinine Clearance 45 ml/min; Glucose 154 mg/dl (70-99); Potassium 5.2 mmol/L (3.5-5.1); Sodium 137 mmol/L (135-145); eGFR 38.99
[2024-05-01 09:45] VITALS: PULSE 61; O2SAT 99
[2024-05-01 09:54] VITALS: PULSE 61; O2SAT 99
[2024-05-01] MEDS: ROCEPHIN 2000 MG IV (11:18)
[2024-05-01] MEDS: STERILE WATER FOR INJECTION 20 ML IV (11:19)
[2024-05-01 11:48] LABS: Glucose - Point of Care 124 mg/dl (70-99)
--- NOTE | 2024-05-01 12:44 | W.PN.HOSP.TC ---
Today's Communication/Plan
-
Continue IV Decadron
Continue IV cefazolin
Follow-up TTE
Assessment / Plan
Assessment / Plan
#Sepsis, present upon admission
#Acute E. Coli urinary tract infection
#Group B strep bacteremia
#Intertrigo
-Unclear source of GBS though may also be genitourinary in nature
-Both E. coli and group B strep are sensitive to cefazolin per our cultures
-Was initially on ceftriaxone, has since been transitioned to IV cefazolin
-Was started on Desenex powder for intertrigo, directed to keep groin and sacrum dry
-TTE ordered to help rule out endocarditis in the context of GBS; repeat cultures negative
Plan
-Continue with IV cefazolin for now
-Follow-up TTE, consider ID consult if positive
-Monitor clinically
#Acute hypoxic respiratory insufficiency
#Acute coronavirus infection
-Patient has been vaccinated and has received her boosters; Chest x-ray showed low lung volumes
-Currently on day 5 of dexamethasone IV 6 mg regimen; was interrupted for 1 day and developed recurrent hypoxemia
-Was started on Mucinex, incentive spirometer and other supportive measures; isolation needed through 05/04
-Continue to monitor respiratory status clinically, isolation through 05/04
-On room air comfortably this morning, will continue Decadron course to complete 10 days
#Chronic HFrEF
-Last TTE showed LVEF 35 to 40%; suspect related to ischemic etiology
-Home GDMT includes carvedilol; GDMT likely limited by her renal function
-Seems euvolemic today
#CAD s/p PCI
-Status post LAD/D1 w/ bifurcation ANNETTE 09/22/2021
-Home meds include beta-fabi, high intensity statin
-Not currently on antiplatelet therapy or anticoagulant
-Will consider resuming aspirin after ruling out bleeding history
#Chronic bilateral lower extremity wounds
#Chronic bilateral lower extremity edema
-Lower extremity Dopplers negative for DVT
-Wound care
#Type 2 diabetes
-A1c 7.2%; no known history of microvascular complications, suspect related to CAD history
-Home regimen includes glipizide, NovoLog 70/30 50 units twice daily
-Currently on home regimen, will monitor glucose on steroid and adjust as needed
#Essential hypertension
-No known history of hypertensive systemic disease
-Home regimen include carvedilol 12.5 twice daily; also on Bumex
-Hydralazine 75 mg 3 times daily was started on admission here
-Most recent BP 154/66, will continue to monitor
#Stage IIIb chronic kidney disease
-Unclear etiology, may be related to diabetes and hypertension history but no formal diagnosis
-Baseline creatinine near 1.5; no secondary bone mineral disease, acidemia, anemia
-Renal function currently at baseline
#Hypothyroidism
-Unclear etiology, home regimen include levothyroxine 150 mcg daily
-Appears stable on current regimen
# GERD
-No history of Bailey's esophagus or erosive disease
-Home regimen includes omeprazole 20 mg daily
-No red flag symptoms here
#Anxiety/depression
-Stable on SSRI
DVT prophylaxis: Lovenox
Diet: Carbohydrate controlled
CODE STATUS: Full code
Disposition: refusing SNF, prefers home
Anticipated Discharge: 24 - 48 hours
Subjective/Interval History
-
Date of Service: May 01, 2024
Seen and examined at the bedside. About to work with physical therapy. No acute events overnight. AFVSS this morning.
Blood cultures positive for E. coli and group B streptococcus. TTE planned for today. Remains on IV cefazolin
She denies any acute complaints including chest pain, shortness of breath, fevers or chills, nausea, vomiting, diarrhea, constipation, urinary issues, abnormal bleeding or bruising, paresthesias or weakness.
Objective Data
-
Labs:
Laboratory Results
05/01/24
07:17
WBC 7.1
Hgb 11.0 L
Hct 34.0 L
Plt Count 236
Sodium 137
Potassium 5.2 H
Chloride 100
Carbon Dioxide 25
BUN 55 H
Creatinine 1.4 H
Glucose 154 H
Calcium 8.0 L
Vital Signs:
Vital Signs
Temp Pulse Resp BP Pulse Ox
97.7 F 63 16 148/67 96
05/01/24 07:15 05/01/24 08:23 05/01/24 07:15 05/01/24 08:23 05/01/24 10:15
I&O
04/30/24 05/01/24 05/02/24
06:59 06:59 06:59
Intake Total 1140 / 1140 1300 / 1300
Output Total 350 / 350 600 / 600
Balance 790 / 790 700 / 700
Review of Systems
-
History Source: Patient
All other systems: Reviewed and negative
Physical Exam
-
General: No Apparent Distress, Comfortable and Morbidly Obese
HEENT: Normocephalic, Atraumatic and Moist Mucous Membranes
Respiratory: Clear to Auscultation and Non Labored Respirations; Negative Wheezes, Rales, Rhonchi or Accessory Resp Muscle Use
Cardiac: Regular Rhythm and S1/S2; Negative Murmur, Rub, JVD or Gallop
GI: Soft, Nontender, Nondistended and Normal Bowel Sounds
Musculoskeletal: No Clubbing, No Cyanosis and No Edema
Skin: Warm; Negative Rash
Neuro: AO x 3, Nonfocal/Grossly Intact and Central Nerve's Intact
Data Reviewed
-
Labs: Labs Reviewed by me and Discussed with Patient
[2024-05-01 15:10] VITALS: BP 150/82
--- NOTE | 2024-05-01 15:57 | CM ---
Patient seen at bedside.
Cont on IV, follow up TTE
Updated clinicals sent to Christopher [facility]NG in [facility] as patient declined SNF
PLAN: Discharge when medically stable to home with [facility]
[2024-05-01] MEDS: DECADRON 6 MG IV (16:53)
[2024-05-01 16:57] LABS: Glucose - Point of Care 172 mg/dl (70-99)
[2024-05-01] MEDS: LOVENOX 40 MG SC (17:32)
[2024-05-01] MEDS: NOVOLOG FLEXPEN-MODERATE RESISTANCE 1 UNITS SC (17:34)
[2024-05-01] MEDS: COREG PO (20:37)
[2024-05-01 21:29] LABS: Glucose - Point of Care 224 mg/dl (70-99)
[2024-05-01 23:24] VITALS: BP 161/68
[2024-05-02 03:59] VITALS: BP 160/61
[2024-05-02 05:51] VITALS: BMI 47.6
[2024-05-02] MEDS: SYNTHROID 150 MCG PO (06:18)
[2024-05-02 07:11] LABS: % Basophils 0.1 % (0-2); % Eosinophils 0.3 % (0-6); % Immature Granulocytes 0.8 % (0-0.5); % Lymphocytes 14.9 % (20.5-51.1); % Monocytes 6.3 % (1.7-9.3); % Neutrophils 77.6 % (42.2-75.2); Absolute Immature Granulocytes 0.1 10^3/uL (0-0.05); Absolute Lymphocytes 1.1 10^3/uL (1.2-3.4); Absolute Monocytes 0.5 10^3/uL (0.1-0.6); Absolute Neutrophils 5.7 10^3/uL (1.4-6.5); Hematocrit 37.1 % (37.0-47.0); Mean Corp Hgb Conc. 32.3 g/dL (33.0-37.0); Mean Corpuscular Hgb 26.1 pg (27.0-31.0); Mean Corpuscular Volume 80.7 fL (81.0-99.0); Mean Platelet Volume 10.2 fL (7.4-10.4); Nucleated Red Blood Cells % 0 %; Platelet Count 257 10^3/uL (130-400); Red Cell Dist. Width 18.2 % (11.5-14.5); White Blood Cell Count 7.3 10^3/uL (4.8-10.8)
[2024-05-02 07:15] VITALS: BP 188/76
[2024-05-02 07:24] LABS: Glucose - Point of Care 125 mg/dl (70-99)
[2024-05-02 07:47] LABS: Blood Urea Nitrogen 50 mg/dl (7-17); Calcium 8.6 mg/dl (8.4-10.2); Carbon Dioxide 28 mmol/L (22-30); Chloride 97 mmol/L (98-107); Estimated Creatinine Clearance 42 ml/min; Glucose 137 mg/dl (70-99); Iron 69 ug/dl (37-170); Potassium 4.8 mmol/L (3.5-5.1); Sodium 137 mmol/L (135-145); eGFR 35.89
[2024-05-02 07:56] LABS: Percent Saturation 29 % (20-50); Total Iron Binding Capacity 233 ug/dl (265-497)
[2024-05-02] MEDS: NOVOLOG FLEXPEN-MODERATE RESISTANCE SC (08:33)
[2024-05-02] MEDS: COREG PO (08:34)
[2024-05-02] MEDS: APRESOLINE 75 MG PO ×3 (08:34→22:43)
[2024-05-02] MEDS: MUCINEX 1200 MG PO ×2 (08:35→20:22)
[2024-05-02] MEDS: LEXAPRO 20 MG PO (08:35)
[2024-05-02] MEDS: LIPITOR 80 MG PO (08:35)
[2024-05-02] MEDS: GLUCOTROL XL (EXTENDED RELEASE) 5 MG PO (08:35)
[2024-05-02] MEDS: BACTROBAN 2% OINTMENT 1 APPLIC TOPICAL (08:35)
[2024-05-02] MEDS: PROTONIX 40 MG PO (08:35)
[2024-05-02] MEDS: HYDROPHOR 1 APPLIC TOPICAL (08:35)
[2024-05-02] MEDS: BUMEX 1 MG PO (08:35)
[2024-05-02] MEDS: DESENEX/MITRAZOL/ZEASORB 1 APPLIC TOPICAL ×2 (08:35→20:23)
[2024-05-02] MEDS: NOVOLOG MIX 70/30 FLEXPEN 35 UNITS SC ×2 (08:36→17:26)
[2024-05-02 08:56] LABS: Folate 5.1 ng/ml (2.76-20); Vitamin B12 260 pg/ml (239-931)
[2024-05-02] MEDS: ROCEPHIN 2000 MG IV (09:40)
[2024-05-02] MEDS: STERILE WATER FOR INJECTION 20 ML IV (09:40)
--- NOTE | 2024-05-02 10:45 | W.PN.HOSP.TC ---
Today's Communication/Plan
-
Continue with cefazolin, plan to switch to p.o. agent tomorrow
Continue with IV dexamethasone
Wean oxygen for SpO2 goal >90
Assessment / Plan
Assessment / Plan
#Sepsis, present upon admission
#Acute E. Coli urinary tract infection
#Group B strep bacteremia
#Intertrigo
-Unclear source of GBS though may also be genitourinary in nature
-Both E. coli and group B strep are sensitive to cefazolin per our cultures
-Was initially on ceftriaxone, has since been transitioned to IV cefazolin
-Was started on Desenex powder for intertrigo, directed to keep groin and sacrum dry
-TTE yesterday without signs of vegetation, repeat cultures negative, suspicion for endocarditis
Plan
-Continue with IV cefazolin for now
-plan to transition to Keflex to complete 10-day course
-Monitor clinically
#Acute hypoxic respiratory insufficiency
#Acute coronavirus infection
-Patient has been vaccinated and has received her boosters; Chest x-ray showed low lung volumes
-Currently on day 5 of dexamethasone IV 6 mg regimen; was interrupted for 1 day and developed recurrent hypoxemia
-Was started on Mucinex, incentive spirometer and other supportive measures; isolation needed through 05/04
-Continue to monitor respiratory status clinically, isolation through 05/04
-Currently saturating 98% on 2 L, expect she can be titrated off today
Plan
-Continue with dexamethasone, plan to complete full 10-day course
-Wean oxygen as possible for SpO2 goal >90%
#Chronic HFrEF
-Last TTE showed LVEF 35 to 40%; suspect related to ischemic etiology
-Home GDMT includes carvedilol; GDMT likely limited by her renal function
-Seems euvolemic
#CAD s/p PCI
-Status post LAD/D1 w/ bifurcation ANNETTE 09/22/2021
-Home meds include beta-fabi, high intensity statin
-Not currently on antiplatelet therapy or anticoagulant
-States she does not know why, denies any bleeding history
-Will start daily aspirin
#Chronic bilateral lower extremity wounds
#Chronic bilateral lower extremity edema
-Lower extremity Dopplers negative for DVT
-Wound care
#Type 2 diabetes
-A1c 7.2%; no known history of microvascular complications, suspect related to CAD history
-Home regimen includes glipizide, NovoLog 70/30 50 units twice daily
-Currently on home regimen, will monitor glucose on steroid and adjust as needed
#Essential hypertension
-No known history of hypertensive systemic disease
-Home regimen include carvedilol 12.5 twice daily; also on Bumex
-Hydralazine 75 mg 3 times daily was started on admission here
-Most recent BP 154/66, will continue to monitor
#Stage IIIb chronic kidney disease
-Unclear etiology, may be related to diabetes and hypertension history but no formal diagnosis
-Baseline creatinine near 1.5; no secondary bone mineral disease, acidemia, anemia
-Renal function currently at baseline
#Hypothyroidism
-Unclear etiology, home regimen include levothyroxine 150 mcg daily
-Appears stable on current regimen
# GERD
-No history of Bailey's esophagus or erosive disease
-Home regimen includes omeprazole 20 mg daily
-No red flag symptoms here
#Anxiety/depression
-Stable on SSRI
DVT prophylaxis: Lovenox
Diet: Carbohydrate controlled
CODE STATUS: Full code
Disposition: refusing SNF, prefers home
Anticipated Discharge: Within 24 hours
Subjective/Interval History
-
Date of Service: May 02, 2024
Seen and examined at bedside. No acute vents overnight. AFVSS this morning on 2 L oxygen, SpO2 98%
She denies any acute complaints today and states she feels fairly well. States she does not get worsening dyspnea when working with PT.
She denies chest pain, shortness of breath, fevers or chills, nausea, vomiting, abdominal pain, diarrhea, abnormal bleeding or bruising, urinary issues, paresthesias or weakness
Objective Data
-
Labs:
Laboratory Results
05/02/24
06:50
WBC 7.3
Hgb 12.0
Hct 37.1
Plt Count 257
Sodium 137
Potassium 4.8
Chloride 97 L
Carbon Dioxide 28
BUN 50 H
Creatinine 1.5 H
Glucose 137 H
Calcium 8.6
Vital Signs:
Vital Signs
Temp Pulse Resp BP Pulse Ox
97.6 F 54 16 188/76 100
05/02/24 07:15 05/02/24 08:34 05/02/24 07:15 05/02/24 07:15 05/02/24 07:15
I&O
05/01/24 05/02/24 05/03/24
06:59 06:59 06:59
Intake Total 1300 / 1300 1080 / 1080
Output Total 600 / 600
Balance 700 / 700 1080 / 1080
Review of Systems
-
History Source: Patient
All other systems: Reviewed and negative
Physical Exam
-
General: No Apparent Distress, Comfortable and Morbidly Obese
HEENT: Normocephalic, Atraumatic, Moist Mucous Membranes, Anicteric and [place] Conjunctivae
Respiratory: Clear to Auscultation, Non Labored Respirations and Other (Poor inspiratory effort); Negative Wheezes, Rales, Rhonchi or Accessory Resp Muscle Use
Cardiac: Regular Rhythm and S1/S2; Negative Murmur, Rub, JVD or Gallop
GI: Soft, Nontender, Nondistended and Normal Bowel Sounds
Musculoskeletal: No Clubbing, No Cyanosis, No Edema, Normal Gait & Station and Other (No gross deformity)
Skin: Warm and Dry; Negative Rash, Ulcers or Jaundice
Neuro: AO x 3, Nonfocal/Grossly Intact and Central Nerve's Intact; Negative Tremors
Data Reviewed
-
Labs: Labs Reviewed by me and Discussed with Patient
[2024-05-02] MEDS: LOW STRENGTH ASPIRIN 81 MG PO (11:33)
[2024-05-02 11:38] LABS: Glucose - Point of Care 150 mg/dl (70-99)
[2024-05-02] MEDS: NOVOLOG FLEXPEN-MODERATE RESISTANCE 1 UNITS SC ×2 (11:55→17:25)
[2024-05-02 11:59] VITALS: BP 149/89
[2024-05-02] MEDS: DECADRON 6 MG IV (15:15)
--- NOTE | 2024-05-02 15:24 | CM ---
Patient seen at bedside.
Cont with IV abt
Declines SNF which was recommended by PT-Referral was previously placed to [facility].
Hospital bed & mattress was ordered through [facility] as per [facility] recommendation.
Updated clinicals sent to [facility] via care port.
Ambulance forms on chart.
PLAN: Home with [facility].
[2024-05-02 15:26] VITALS: BP 183/64
[2024-05-02 17:08] LABS: Glucose - Point of Care 159 mg/dl (70-99)
[2024-05-02] MEDS: LOVENOX 40 MG SC (17:24)
[2024-05-02 18:06] VITALS: BP 172/76
[2024-05-02] MEDS: COREG 12.5 MG PO (20:22)
[2024-05-02 22:07] LABS: Glucose - Point of Care 238 mg/dl (70-99)
[2024-05-02 23:09] VITALS: BP 171/64
[2024-05-03 00:47] VITALS: BP 163/59
--- NOTE | 2024-05-03 04:11 | DOWNTIME ---
There was a [employer] Downtime on 05/03/2024 from 0100 to 05/03/2024 at 0300. Downtime documentation of patient's care, including medication administrations, has been reconciled in the electronic record per guidelines. Refer to the
patient's paper chart under the miscellaneous tab to see printed paper medication records and downtime forms.
[2024-05-03] MEDS: SYNTHROID 150 MCG PO (05:50)
[2024-05-03 06:00] VITALS: BMI 47.3
[2024-05-03 07:10] VITALS: BP 175/72
[2024-05-03 07:33] LABS: Glucose - Point of Care 159 mg/dl (70-99)
[2024-05-03 07:59] LABS: % Basophils 0.1 % (0-2); % Eosinophils 0.1 % (0-6); % Immature Granulocytes 0.7 % (0-0.5); % Lymphocytes 18.9 % (20.5-51.1); % Monocytes 7.1 % (1.7-9.3); % Neutrophils 73.1 % (42.2-75.2); Absolute Immature Granulocytes 0.1 10^3/uL (0-0.05); Absolute Lymphocytes 1.4 10^3/uL (1.2-3.4); Absolute Monocytes 0.5 10^3/uL (0.1-0.6); Absolute Neutrophils 5.3 10^3/uL (1.4-6.5); Hematocrit 34.3 % (37.0-47.0); Hemoglobin 11.3 g/dL (12.0-16.0); Mean Corp Hgb Conc. 32.9 g/dL (33.0-37.0); Mean Corpuscular Hgb 26.1 pg (27.0-31.0); Mean Corpuscular Volume 79.2 fL (81.0-99.0); Mean Platelet Volume 10.6 fL (7.4-10.4); Nucleated Red Blood Cells % 0 %; Platelet Count 270 10^3/uL (130-400); Red Blood Cell Count 4.33 10^6/uL (4.20-5.40); Red Cell Dist. Width 17.7 % (11.5-14.5); White Blood Cell Count 7.2 10^3/uL (4.8-10.8)
[2024-05-03] MEDS: LEXAPRO 20 MG PO (08:01)
[2024-05-03] MEDS: APRESOLINE 75 MG PO (08:01)
[2024-05-03] MEDS: LIPITOR 80 MG PO (08:01)
[2024-05-03] MEDS: BUMEX 1 MG PO (08:02)
[2024-05-03] MEDS: GLUCOTROL XL (EXTENDED RELEASE) 5 MG PO (08:02)
[2024-05-03] MEDS: COREG 12.5 MG PO (08:02)
[2024-05-03] MEDS: BACTROBAN 2% OINTMENT 1 APPLIC TOPICAL (08:03)
[2024-05-03] MEDS: DESENEX/MITRAZOL/ZEASORB 1 APPLIC TOPICAL (08:03)
[2024-05-03] MEDS: MUCINEX 1200 MG PO (08:04)
[2024-05-03] MEDS: LOW STRENGTH ASPIRIN 81 MG PO (08:04)
[2024-05-03] MEDS: PROTONIX 40 MG PO (08:04)
[2024-05-03] MEDS: HYDROPHOR 1 APPLIC TOPICAL (08:04)
[2024-05-03] MEDS: NOVOLOG FLEXPEN-MODERATE RESISTANCE 1 UNITS SC (08:05)
[2024-05-03] MEDS: NOVOLOG MIX 70/30 FLEXPEN 35 UNITS SC (08:06)
[2024-05-03 08:29] LABS: Blood Urea Nitrogen 55 mg/dl (7-17); Calcium 8.2 mg/dl (8.4-10.2); Carbon Dioxide 27 mmol/L (22-30); Chloride 97 mmol/L (98-107); Estimated Creatinine Clearance 45 ml/min; Glucose 168 mg/dl (70-99); Potassium 4.9 mmol/L (3.5-5.1); Sodium 135 mmol/L (135-145); eGFR 38.99
[2024-05-03] MEDS: ROCEPHIN 2000 MG IV (09:47)
[2024-05-03] MEDS: STERILE WATER FOR INJECTION 20 ML IV (09:47)
[2024-05-03] MEDS: SENOKOT-S 1 TABLET PO (11:11)
--- NOTE | 2024-05-03 11:21 | W.PN.HOSP.TC ---
Today's Communication/Plan
-
Transition to oral antibiotic
Discharge home
Assessment / Plan
Assessment / Plan
#Sepsis, present upon admission
#Acute E. Coli urinary tract infection
#Group B strep bacteremia
#Intertrigo
-Unclear source of GBS though may also be genitourinary in nature
-Both E. coli and group B strep are sensitive to cefazolin per our cultures
-Was initially on ceftriaxone, has since been transitioned to IV cefazolin
-Was started on Desenex powder for intertrigo, directed to keep groin and sacrum dry
-TTE yesterday without signs of vegetation, repeat cultures negative, suspicion for endocarditis
-Will transition IV cefazolin to cefdinir to complete 10-day course of antibiotic
#Acute hypoxic respiratory insufficiency
#Acute coronavirus infection
-Patient has been vaccinated and has received her boosters; Chest x-ray showed low lung volumes
-Currently on day 5 of dexamethasone IV 6 mg regimen; was interrupted for 1 day and developed recurrent hypoxemia
-Was started on Mucinex, incentive spirometer and other supportive measures; isolation needed through 05/04
-Continue to monitor respiratory status clinically, isolation through 05/04
-Now on room air, will prescribe dexamethasone to complete 10-day course
#Chronic HFrEF
-Last TTE showed LVEF 35 to 40%; suspect related to ischemic etiology
-Home GDMT includes carvedilol; GDMT likely limited by her renal function
-Seems euvolemic
#CAD s/p PCI
-Status post LAD/D1 w/ bifurcation ANNETTE 09/22/2021
-Home meds include beta-fabi, high intensity statin
-Not currently on antiplatelet therapy or anticoagulant
-States she does not know why, denies any bleeding history
-Will start daily aspirin
#Chronic bilateral lower extremity wounds
#Chronic bilateral lower extremity edema
-Lower extremity Dopplers negative for DVT
-Wound care
#Type 2 diabetes
-A1c 7.2%; no known history of microvascular complications, suspect related to CAD history
-Home regimen includes glipizide, NovoLog 70/30 50 units twice daily
-Currently on home regimen, will monitor glucose on steroid and adjust as needed
#Essential hypertension
-No known history of hypertensive systemic disease
-Home regimen include carvedilol 12.5 twice daily; also on Bumex
-Hydralazine 75 mg 3 times daily was started on admission here
-Most recent BP 154/66, will continue to monitor
#Stage IIIb chronic kidney disease
-Unclear etiology, may be related to diabetes and hypertension history but no formal diagnosis
-Baseline creatinine near 1.5; no secondary bone mineral disease, acidemia, anemia
-Renal function currently at baseline
#Hypothyroidism
-Unclear etiology, home regimen include levothyroxine 150 mcg daily
-Appears stable on current regimen
# GERD
-No history of Bailey's esophagus or erosive disease
-Home regimen includes omeprazole 20 mg daily
-No red flag symptoms here
#Anxiety/depression
-Stable on SSRI
DVT prophylaxis: Lovenox
Diet: Carbohydrate controlled
CODE STATUS: Full code
Disposition: refusing SNF, prefers home
Anticipated Discharge: Today
Subjective/Interval History
-
Date of Service: May 03, 2024
Seen and examined at bedside this morning. No acute events over night. AFVSS this morning, now on room air
She states she feels well, working with PT and does not have worsening dyspnea when moving
Denies chest pain, shortness of breath, fevers or chills, nausea, vomiting, diarrhea, urinary issue, abnormal bleeding or bruising, paresthesias or weakness
She does have some mild complaint of constipation, had a bowel movement this morning however. Will give 1 dose of senna now
Objective Data
-
Labs:
Laboratory Results
05/03/24
07:14
WBC 7.2
Hgb 11.3 L
Hct 34.3 L
Plt Count 270
Sodium 135
Potassium 4.9
Chloride 97 L
Carbon Dioxide 27
BUN 55 H
Creatinine 1.4 H
Glucose 168 H
Calcium 8.2 L
Vital Signs:
Vital Signs
Temp Pulse Resp BP Pulse Ox
97.6 F 69 18 175/72 95
05/03/24 07:10 05/03/24 08:02 05/03/24 07:10 05/03/24 08:01 05/03/24 07:10
I&O
05/02/24 05/03/24 05/04/24
06:59 06:59 06:59
Intake Total 1080 / 1080 1400 / 1400
Output Total 2250 / 2250
Balance 1080 / 1080 -850 / -850
Review of Systems
-
History Source: Patient
All other systems: Reviewed and negative
Physical Exam
-
General: No Apparent Distress, Comfortable and Morbidly Obese
HEENT: Normocephalic, Atraumatic and Moist Mucous Membranes
Respiratory: Clear to Auscultation and Non Labored Respirations; Negative Wheezes, Rales or Rhonchi
Cardiac: Regular Rhythm and S1/S2; Negative Murmur, Rub or Gallop
GI: Soft, Nontender, Nondistended and Normal Bowel Sounds
Musculoskeletal: No Clubbing, No Cyanosis and No Edema
Skin: Warm, Dry and Normal Turgor; Negative Rash
Neuro: AO x 3, Nonfocal/Grossly Intact and Central Nerve's Intact
Data Reviewed
-
Labs: Labs Reviewed by me and Discussed with Patient
--- NOTE | 2024-05-03 11:31 | W.DCSUMMARY ---
Discharge Summary
Discharge Data
Date of Admission: 04/25/24
Date of Discharge: 05/03/24
-
Pending Results: No
Hospital Course
78-year-old female with HFrEF (EF 35%), CAD s/p PCI, CKD 3B, T2DM, hypothyroidism, GERD, CVI presented with acute hypoxemic respiratory insufficiency in the context of COVID-19. Required low levels of oxygen throughout hospital stay was started on
dexamethasone course with improvement in her respiratory status, was transitioned to room air though became hypoxemic subsequently after discontinuation of dexamethasone. Resumed on dexamethasone and was ultimately weaned off oxygen successfully.
Worked with physical therapy with minimal symptoms. Transition to oral dexamethasone 6 mg daily at discharge for 5 more days to complete 10 full days of therapy for
She also was found to have sepsis from E. coli and GBS which were pansensitive species. Likely source was urinary, was started on IV ceftriaxone empirically. Repeat cultures were taken and negative. Echocardiogram was obtained due to the presence
of GBS in the blood though no evidence of vegetations. With a negative TTE, lack of findings on repeat cultures, no other clinical suspicion for [place] criteria suspicion for endocarditis was very low at time of discharge. She was transition from
ceftriaxone to oral cefdinir 300 mg twice daily to complete 14-day course of antibiotics
Short-term rehab was recommended by her physical therapy team. Patient and her preferred home care
Should follow-up with primary care doctor within 7 to 10 days of discharge for routine follow-up
Discharge Plan
-
Patient Disposition: Home (Routine Discharge)
Discharge Diagnosis/Procedures: COVID
UTI with sepsis
Condition: Good
Diet: Other diet
Additional Diets: No added salt
Activity: As tolerated
Driving Restrictions: No driving for 24 hours
Bathing Restrictions: None
Blood Work: None
Others Tests: None
Activity Restrictions/Additional Instructions:
Wound Care Instructions
Sacral/buttocks-clean with saline or soap and water, silicone border foam, change q 2 days and prn loosened dressing.
Le's-clean with saline, Aquaphor ointment or Vaseline to dry skin, Bactroban ointment, adaptic, abd pad, Kerlix wrap, change daily and prn drainage.
Bilateral knee high Vincent wraps as tolerated; rewrap every morning.
Elevate heels off bed with pillows.
Air mattress.
Pressure redistributing chair cushion (i.e. Gel, Roho, air)
Follow up with wound child care cook or at wound care center call for an appointment.
Instructions: Sepsis in adults, COVID-19 in adults - Discharge instructions
Referrals:
Ethan Nobles MD [Active] - (If you need a new primary care doctor)
UNKNOWN,NO INTERVIEW [Family Provider] -
Additional Discharge Medication Instructions: Take cefdinir 300 mg twice daily for 7 more days after discharge from the hospital
Take dexamethasone 6 mg daily for 5 more days after discharge
Start aspirin 81 mg daily, call your family doctor if you notice any new bleeding
Start hydralazine 75 mg 3 times daily
Changed insulin to 35 units twice daily
Prescriptions:
New
hydralazine 50 mg Tablet
75 mg PO TID 30 Days Qty: 135 0RF
aspirin 81 mg Tablet,Chewable
81 mg PO DAILY 30 Days Qty: 30 0RF
insulin asp prt-insulin aspart 100 unit/mL (70-30) Insulin Pen
35 unit SC BID@0800,1700 30 Days Qty: 15 0RF
cefdinir 300 mg capsule
300 mg PO Q12H 7 Days Qty: 14 0RF
dexamethasone 6 mg tablet
6 mg PO DAILY 5 Days Qty: 5 0RF
Continued
escitalopram oxalate 10 mg Tablet
20 mg PO DAILY
levothyroxine 150 mcg Tablet
150 mcg PO DAILY
carvedilol 12.5 mg Tablet
12.5 mg PO BID
glipizide 5 mg Tablet Extended Release 24hr
5 mg PO DAILY
atorvastatin [Lipitor] 80 mg Tablet
80 mg PO DAILY
meclizine 25 mg Tablet
25 mg PO BIDPRN PRN (Reason: dizziness )
omeprazole 20 mg Tablet,Delayed Release (Dr/Ec)
20 mg PO DAILY
bumetanide 1 mg tablet
1 mg PO DAILY
Discontinued
insulin asp prt-insulin aspart [Novolog Mix 70-30 U-100 Insuln] 100 unit/mL (70-30) Solution
50 sliding scale dose SC BID
clindamycin HCl 300 mg Capsule
300 mg PO Q6H
Discharge Orders:
Discharge Patient (As Directed); Ordered 05/03/24
Ordered By: Gideon King
Discharge Date and Time
Print Language: CHILEAN
[2024-05-03 11:36] LABS: Glucose - Point of Care 113 mg/dl (70-99)
[2024-05-03] MEDS: NOVOLOG FLEXPEN-MODERATE RESISTANCE SC (11:54)
--- NOTE | 2024-05-03 13:23 | CM ---
Patient discharge today.
in room.
Discussed [employer] will be calling him regarding hospital bed/air mattress.
Care port referral updated with discharge date today.
Patient declined SNF & will discharge with home health.
IMM explained & signed. In chart
PLAN: Discharge to home with [facility]
Fax #: [phone]
[2024-05-03 15:05] VITALS: BP 149/59
== END 2024-05-03 15:31 | disposition home health service (06) | DRG 871 ==
LOC: 2 NORTH 11:09
PROVIDERS: Physician Assistant; ADMITTING PHYSICIAN Family Medicine; ATTENDING PHYSICIAN Internal Medicine; EMERGENCY PHYSICIAN Emergency Medicine
DX: A41.51 Sepsis due to Escherichia coli [E. coli] (principal); U07.1 COVID-19; I50.22 Chronic systolic (congestive) heart failure; N39.0 Urinary tract infection, site not specified; I13.0 Hypertensive heart and chronic kidney disease with heart failure and stage 1 through stage 4 chronic kidney disease, or unspecified chronic kidney disease; E87.1 Hypo-osmolality and hyponatremia; Z68.42 Body mass index [BMI] 45.0-49.9, adult; Z87.891 Personal history of nicotine dependence; R09.02 Hypoxemia; R06.89 Other abnormalities of breathing; E11.22 Type 2 diabetes mellitus with diabetic chronic kidney disease; N18.32 Chronic kidney disease, stage 3b; E03.9 Hypothyroidism, unspecified; K21.9 Gastro-esophageal reflux disease without esophagitis; F32.A Depression, unspecified; L89.152 Pressure ulcer of sacral region, stage 2; E66.9 Obesity, unspecified
CPT/HCPCS: 71045; 80048; 80053; 81003; 81015; 82607; 82728; 82746; 82947; 82962; 83036; 83540; 83550; 83605; 83735; 83880; 84100; 85025; 85027; 87040; 87070; 87077; 87086; 87147; 87186; 87205; 87811; 93005; 93306; 93970; 96374; 96375; 97163; 97167; 97530; 97535; 99285

== ENCOUNTER 2024-05-26 01:31 | Emergency (ER) | payer OTHER, SELFPAY ==
--- NOTE | 2024-05-26 02:02 | ED.GENMED ---
History of Present Illness
General
Chief Complaint: CODE
Source: family and ambulance crew
Exam Limitations: clinical condition
Time Seen by Provider: 05/26/24 01:37
History of Present Illness
History of Present Illness:
See MDM
Past History
Past History
ED Past Medical History: CHF, HTN and NIDDM
ED Past Surgical History: None
Social History
Tobacco: Non-smoker
Alcohol: None
Phy Exam
Physical Exam
Physical Exam:
See MDM
Course
Vital Signs
Initial and Last Documented VS:
Initial Vital Signs
Pulse Ox
93
05/26/24 01:36
Last Documented Vital Signs
Temp Pulse Ox
97.7 F 93
05/26/24 01:38 05/26/24 01:36
MDM/Problems Addressed
Differential Diagnosis Includes:
HPI and MDM Narrative:
78-year-old female presenting as a prearrival cardiac arrest. Per EMS, they were called to the house for uncontrolled bleeding of her right leg. When they arrived, the patient started walking and complained of shortness of breath. She coded in
front of them. They started CPR immediately and intubated. They performed CPR for total 45 minutes and provided 6 doses of epinephrine. On arrival, patient still in PEA arrest. On arrival, patient has an dilated pupils and has evidence of skin
mottling. CPR was continued on arrival and epinephrine was also continued. Bedside echocardiogram performed by myself showing no cardiac activity. Given the prolonged CPR time in addition to skin mottling and fixed pupils, time of was
called at 1:39 AM
Physical exam
General: Morbidly obese, no respiratory drive
HEENT: Not protecting airway.. Pupils fixed and
Neck: appears supple
CV: evidence of cyanosis and mottling. No palpable pulse noted
Resp: Easy to bag
Abd: Non-distended
Extremities: Dependent edema noted to bilateral lower extremities. No active bleeding noted
Neuro: GCS 3
Psych: Flat affect
Skin: Cool to touch
Problems Addressed including Acute and Chronic Conditions affecting care:
1. Cardiac arrest
Acuity: acute
Prognosis: unstable
Details: Time of was called at 1:39 AM. Patient remained in PEA the entire time for over 45 minutes and no pulses palpated
Updates
2:42 AM Case discussed with medical delivery driver Bobo who released the body
Differential Diagnosis (but not limited to): CHF exacerbation, PE, cardiac arrest
Testing considered: Chest x-ray
Drug therapy (if applicable): OTC meds, please see d/c instruction regarding Rx drugs
Amount and/or Complexity of Data Reviewed
Clinical info obtained from: Patient
External data reviewed: N/A
Labs I independently reviewed (but not limited to): N/A
Radiology: N/A
Pulse Ox: not hypoxic
EKG independently reviewed: N/A
Sand Polisher: PA
Critical Care: The high probability of a clinically significant, sudden or life threatening deterioration of the cardiopulmonary system(s) required my full and direct attention, intervention and personal management. The aggregate critical care time
was 20 minutes. This time is in addition to time spent performing reported procedures but includes the following:
[x] Data Review and interpretation
[x] Patient assessment and monitoring of vital signs
[x] Documentation
[x] Medication orders and management
Risk of Complication:
Social Determinants of health: Good social support
Discussed with other providers: N/A
Escalation of Care includes Admit/Obs: Patient and time of called at 1:39 AM
Occasional wrong word or 'sound a like' substitutions may have occurred due to the inherent limitations of voice recognition software. Read the chart carefully and recognize, using context, where substitutions have occurred.
*Critical Care Note
Total Time (30-74mins, 75-104mins- exclusive of procedures): 20 min
ED Attending Note
-
Portions of this chart may have been created with voice recognition software.� Occasional wrong word or��sound alike� substitutions may have occurred due to the inherent limitations of voice recognition software.
Discharge Plan
Departure
Patient Disposition:
Date of Disposition: 05/26/24
Time of Disposition: 02:07
Discharge Problem:
Cardiac arrest
Prescriptions:
No Action
escitalopram oxalate 10 mg Tablet
20 mg PO DAILY
levothyroxine 150 mcg Tablet
150 mcg PO DAILY
carvedilol 12.5 mg Tablet
12.5 mg PO BID
glipizide 5 mg Tablet Extended Release 24hr
5 mg PO DAILY
atorvastatin [Lipitor] 80 mg Tablet
80 mg PO DAILY
meclizine 25 mg Tablet
25 mg PO BIDPRN PRN (Reason: dizziness )
omeprazole 20 mg Tablet,Delayed Release (Dr/Ec)
20 mg PO DAILY
bumetanide 1 mg tablet
1 mg PO DAILY
hydralazine 50 mg Tablet
75 mg PO TID 30 Days Qty: 135 0RF
aspirin 81 mg Tablet,Chewable
81 mg PO DAILY 30 Days Qty: 30 0RF
insulin asp prt-insulin aspart 100 unit/mL (70-30) Insulin Pen
35 unit SC BID@0800,1700 30 Days Qty: 15 0RF
cefdinir 300 mg capsule
300 mg PO Q12H 7 Days Qty: 14 0RF
dexamethasone 6 mg tablet
6 mg PO DAILY 5 Days Qty: 5 0RF
Referrals:
UNKNOWN - PT DOES,NOT KNOW [Unknown Provider] -
Discharge Date and Time
Print Language: MICRONESIAN
== END 2024-05-26 01:39 | disposition expired ==
LOC: EMR 01:31
PROVIDERS: EMERGENCY PHYSICIAN Student in an Organized Health Care Education/Training Program; FAMILY PHYSICIAN Family Medicine
DX: I46.9 Cardiac arrest, cause unspecified (principal); I11.0 Hypertensive heart disease with heart failure; I50.9 Heart failure, unspecified; E11.9 Type 2 diabetes mellitus without complications
CPT/HCPCS: 99283